=== PATIENT | male | born 1950 | race Caucasian/White ===

== ENCOUNTER 2018-03-05 08:06 | Emergency (ER) | payer MEDICARE, BC, SELFPAY ==
[2018-03-05] VITALS (16 sets, daily range): BP systolic 158–181; BP diastolic 82–104; PULSE 58–81; RESP 16–18; TEMP 36.4–37.9; O2SAT 96–99
[2018-03-05 08:16] LABS: Bilirubin Negative (Negative); Blood Moderate (Negative); Clarity Clear; Glucose Negative (Negative); Ketones 40 mg/dL (Negative); Leukocyte Esterase Negative (Negative); Nitrite Negative (Negative); Specific Gravity 1.025 (1.005-1.025); Urobilinogen 0.2 EU/dL (Up TO 0.2); pH 6.5 (5-8)
[2018-03-05 08:27] LABS: Bacteria Rare HPF (Negative); C & S Indicated? No; Casts Negative LPF (Negative); Crystals Negative HPF (Negative); Epithelial Cells Rare HPF (Negative); Mucus Moderate (Negative)
[2018-03-05 08:46] LABS: Abs Immature Grans 0.07 k/cumm (0.0-0.09); Absolute Lymphocyte Count 0.86 k/cumm (1.2-3.4); Absolute Monocyte Count 1.76 k/cumm (0.11-0.7); Basophils % 0.1; Eosinophils % 0.1; HCT 48.1 % (40.0-50.0); HGB 16.8 g/dL (13.5-17.5); Immature Grans % 0.4; Lymphocytes % 4.8; Mean Corp. HGB Concentration 34.9 g/dL (32.0-36.0); Mean Corpuscular Hemoglobin 28.8 pg (27.0-33.0); Mean Corpuscular Volume 82.4 fL (80-95); Mean Platelet Volume 10.8 fL (8.0-11.0); Monocytes % 9.9; Neutrophils % 84.7; Platelet Count 193 x1000/uL (130-400); RBC 5.84 m/cumm (4.50-6.00); RBC Distribution Width 13.3 % (11.8-14.1); White Blood Cell Count 17.82 k/cumm (4.4-10.8)
[2018-03-05] MEDS: Lactated Ringers 1,000 ML 1000 ML IV (08:47)
[2018-03-05] MEDS: Ondansetron 4 MG/2 ML VIAL IVP (08:49)
--- NOTE | 2018-03-05 08:50 | W.ED.GENAD ---
Discharge Plan Disposition Patient Disposition: HOME Discharge Details Chief Complaint: Abd Prob Clinical Impression: Inflammation of small intestine, Gallstones, Right kidney stone Primary Care Provider: Clement Queen ED Provider: Chester Mccabe Home Meds and New Rx's Prescriptions: New metronidazole [Flagyl] 250 mg tablet 250 mg PO TID Qty: 21 RF: 0 tamsulosin [Flomax] 0.4 mg capsule 0.4 mg PO DAILY Qty: 2 RF: 0 Continued lisinopril 20 mg Tablet 20 mg PO DAILY RF: 0 acetaminophen [Tylenol] 325 mg Capsule 325 mg PO Q6H PRNRF: 0 Discharge Instructions Instructions: Gallstones (ED), Kidney Stones (ED) Additional Instructions: Please drink plenty of fluids to stay hydrated. Please follow-up with general surgery. You need to have an endoscopy and colonoscopy as soon as possible. Please contact your primary care physician to arrange follow-up. Return to the ER for any worsening or new concerning symptoms. Referrals: Clement Queen [Primary Care Provider] - Yinka Fuentes DO [ [facility] STAFF PHYSICIAN] - Discharge Data Discharge Date/Time-TO BE ENTERED AT DEPARTURE: 03/05/18 13:45 Medical Decision Making 8:50 --67-year-old male smoker here with 3-4 days of right upper quadrant abdominal pain and right flank pain with associated nausea and vomiting. Bedside [id number] ultrasound reveals gallbladder with large stone that does not appear to be obstructing the neck of the gallbladder. Plan to check labs including LFTs and lipase to assess for pancreatitis. Plan to obtain abdominal ultrasound. Offered pain medication and patient declined. We will give antiemetics Zofran IV and IVF bolus. --labs reviewed and leukocytosis noted. LFTs are not significantly elevated. Normal lipase. Urinalysis has ketones and some RBCs. Spoke with radiology regarding right upper quadrant ultrasound: Gallstones are present, no pericholecystic fluid or gallbladder wall thickening. Findings are not consistent with acute cholecystitis. 12:35 -- Spoke to Dr. Guzman about results of the CT imagin mm renal stone right UVJ with hydronephrosis, gallstones present with no signs of acute cholecystitis patient has small intestinal bowel wall thickening that may be consistent with Giardia. He recommends follow-up outpatient endoscopy I called and spoke with Dr. Myers about patient's presentation and diagnostic workup and he will be happy to see the patient in follow-up and recommends starting metronidazole. Plan to start metronidazole. I will order outpatient stool studies. Patient reassessed multiple times and is remained stable. Nausea controlled. Tolerating p.o. fluids. Usual and customary discahrge instructions were provided. HPI General Mode of arrival: ambulatory. Date/Time Provider Initiated Documentation: 03/05/18 08:12. Limitations to Documentation: no limitations. Information obtained by: patient. HPI Narrative: 67-year-old male presents with 3-4 days of abdominal pain. Patient notes pain is moderate to severe. Waxes and wanes. Pain is localized to his right upper abdomen and right flank. Pain is described as sharp. No associated fever or urinary symptoms. He does have associated nausea and vomiting. He has anorexia and has not had a recent bowel movement. He is passing gas. No prior surgical history. Related Data Home Medications Medication Instructions Recorded Confirmed acetaminophen [Tylenol] 325 mg PO Q6H PRN 03/05/18 03/05/18 lisinopril 20 mg PO DAILY 03/05/18 03/05/18 metronidazole [Flagyl] 250 mg PO TID #21 tab 03/05/18 tamsulosin [Flomax] 0.4 mg PO DAILY #2 cap 03/05/18 Previous Rx's Medication Instructions Recorded metronidazole [Flagyl] 250 mg PO TID #21 tab 03/05/18 tamsulosin [Flomax] 0.4 mg PO DAILY #2 cap 03/05/18 Allergies Allergy/AdvReac Type Severity Reaction Status Date / Time No Known Allergies Allergy Unverified 03/05/18 08:09 General Stated Complaint: Abd Prob QUETA: 3 Review of Systems Review of Systems All systems reviewed & are unremarkable except as noted in HPI and below Cardiovascular Denies chest pain Gastrointestinal Reports abdominal pain and Reports nausea PFSH Medical History Hypertension (Chronic) Social History Smoking/Tobacco Use Status: Current-Occasional Exam Const General: cooperative and no acute distress HENMT Head: normocephalic and atraumatic Mouth: moist mucous membranes Eyes Conjunctivae: normal conjunctivae Sclera: normal sclerae EOM: EOM intact bilaterally Neck Neck: No JVD Resp Auscultation: clear to auscultation bilaterally, no rales, no rhonchi and no wheezes Cardio Jugular venous pressure: no JVD Rate: regular rate and not tachycardic Rhythm: regular rhythm GI Palpation: soft, not firm, no guarding, no masses, not rigid and tender in the RUQ; Ram's sign negative, with no rebound tenderness and Rovsing's sign negative Auscultation: normal bowel sounds Back/Spine/Pelvis Back: CVA tenderness (right) Skin General skin exam: no rashes or lesions noted Neuro General: alert, awake, oriented x3 and tone normal Extrem General: no edema Psych Appearance: grossly normal Mental Status: mental status grossly normal Speech and Movement: speech and movement normal Course Vital Signs Temperature 36.7 C 03/05/18 08:14 Pulse 75 03/05/18 08:14 Respiratory Rate 18 03/05/18 08:14 Blood Pressure 160/82 H 03/05/18 08:14 Pulse Oximetry 99 03/05/18 08:14 Temperature 36.7 C 03/05/18 08:14 Temperature Source Temporal Artery Scan 03/05/18 08:14 Pulse 75 03/05/18 08:14 Respiratory Rate 18 03/05/18 08:14 Respiratory Effort Non-Labored 03/05/18 08:17 Blood Pressure 160/82 H 03/05/18 08:14 Blood Pressure Position Supine 03/05/18 08:14 Pulse Oximetry 99 03/05/18 08:14 Oxygen Delivery Method Room Air 03/05/18 08:14 Oxygen Flow Rate 0 03/05/18 08:14 Pain Level 8 03/05/18 08:49 Lab/Test Results Lab/Test Results: Laboratory Tests Range/Units 03/05/18 08:11 Urine Color (Yellow) Yellow Urine Clarity Clear Urine pH (5-8) 6.5 Ur Specific [place] (1.005-1.025) 1.025 Urine Protein (Negative) mg/dL 100 H Urine Ketones (Negative) mg/dL 40 H Urine Blood (Negative) Moderate H Urine Nitrite (Negative) Negative Urine Bilirubin (Negative) Negative Urine Urobilinogen (Up TO 0.2) EU/dL 0.2 Ur Leukocyte Esterase (Negative) Negative Urine RBC (0-2) 5-10 H Urine WBC (0-5) HPF 3-5 Ur Epithelial Cells (Negative) HPF Rare Urine Crystals (Negative) HPF Negative Urine Bacteria (Negative) HPF Rare Urine Casts (Negative) LPF Negative Urine Mucus (Negative) Moderate Ur Culture Indicated? No Urine Glucose (Negative) mg/dL Negative
--- NOTE | 2018-03-05 08:54 | ED.GENADUL_ITS ---
Discharge Plan Disposition Patient Disposition: HOME Discharge Details Chief Complaint: Abd Prob Clinical Impression: Inflammation of small intestine, Gallstones, Right kidney stone Primary Care Provider: Clement Queen ED Provider: Chester Mccabe Home Meds and New Rx's Prescriptions: New metronidazole [Flagyl] 250 mg tablet 250 mg PO TID Qty: 21 RF: 0 tamsulosin [Flomax] 0.4 mg capsule 0.4 mg PO DAILY Qty: 2 RF: 0 Continued lisinopril 20 mg Tablet 20 mg PO DAILY RF: 0 acetaminophen [Tylenol] 325 mg Capsule 325 mg PO Q6H PRNRF: 0 Discharge Instructions Instructions: Gallstones (ED), Kidney Stones (ED) Additional Instructions: Please drink plenty of fluids to stay hydrated. Please follow-up with general surgery. You need to have an endoscopy and colonoscopy as soon as possible. Please contact your primary care physician to arrange follow-up. Return to the ER for any worsening or new concerning symptoms. Referrals: Clement Queen [Primary Care Provider] - Yinka Fuentes DO [ [facility] STAFF PHYSICIAN] - Discharge Data Discharge Date/Time-TO BE ENTERED AT DEPARTURE: 03/05/18 13:45 Medical Decision Making 8:50 --67-year-old male smoker here with 3-4 days of right upper quadrant abdominal pain and right flank pain with associated nausea and vomiting. Bedside [id number] ultrasound reveals gallbladder with large stone that does not appear to be obstructing the neck of the gallbladder. Plan to check labs including LFTs and lipase to assess for pancreatitis. Plan to obtain abdominal ultrasound. Offered pain medication and patient declined. We will give antiemetics Zofran IV and IVF bolus. --labs reviewed and leukocytosis noted. LFTs are not significantly elevated. Normal lipase. Urinalysis has ketones and some RBCs. Spoke with radiology regarding right upper quadrant ultrasound: Gallstones are present, no pericholecystic fluid or gallbladder wall thickening. Findings are not consistent with acute cholecystitis. 12:35 -- Spoke to Dr. Guzman about results of the CT imagin mm renal stone right UVJ with hydronephrosis, gallstones present with no signs of acute cholecystitis patient has small intestinal bowel wall thickening that may be consistent with Giardia. He recommends follow-up outpatient endoscopy I called and spoke with Dr. Myers about patient's presentation and diagnostic workup and he will be happy to see the patient in follow-up and recommends starting metronidazole. Plan to start metronidazole. I will order outpatient stool studies. Patient reassessed multiple times and is remained stable. Nausea controlled. Tolerating p.o. fluids. Usual and customary discahrge instructions were provided. HPI General Mode of arrival: ambulatory . Date/Time Provider Initiated Documentation: 03/05/18 08:12 . Limitations to Documentation: no limitations . Information obtained by: patient . HPI Narrative: 67-year-old male presents with 3-4 days of abdominal pain. Patient notes pain is moderate to severe. Waxes and wanes. Pain is localized to his right upper abdomen and right flank. Pain is described as sharp. No associated fever or urinary symptoms. He does have associated nausea and vomiting. He has anorexia and has not had a recent bowel movement. He is passing gas. No prior surgical history. Related Data Home Medications Medication Instructions Recorded Confirmed acetaminophen [Tylenol] 325 mg PO Q6H PRN 03/05/18 03/05/18 lisinopril 20 mg PO DAILY 03/05/18 03/05/18 metronidazole [Flagyl] 250 mg PO TID #21 tab 03/05/18 tamsulosin [Flomax] 0.4 mg PO DAILY #2 cap 03/05/18 Previous Rx's Medication Instructions Recorded metronidazole [Flagyl] 250 mg PO TID #21 tab 03/05/18 tamsulosin [Flomax] 0.4 mg PO DAILY #2 cap 03/05/18 Allergies Allergy/AdvReac Type Severity Reaction Status Date / Time No Known Allergies Allergy Unverified 03/05/18 08:09 General Stated Complaint: Abd Prob QUETA: 3 Review of Systems Review of Systems All systems reviewed & are unremarkable except as noted in HPI and below Cardiovascular Denies chest pain Gastrointestinal Reports abdominal pain and Reports nausea PFSH Medical History Hypertension (Chronic) Social History Smoking/Tobacco Use Status: Current-Occasional Exam Const General: cooperative and no acute distress HENMT Head: normocephalic and atraumatic Mouth: moist mucous membranes Eyes Conjunctivae: normal conjunctivae Sclera: normal sclerae EOM: EOM intact bilaterally Neck Neck: No JVD Resp Auscultation: clear to auscultation bilaterally, no rales, no rhonchi and no wheezes Cardio Jugular venous pressure: no JVD Rate: regular rate and not tachycardic Rhythm: regular rhythm GI Palpation: soft, not firm, no guarding, no masses, not rigid and tender in the RUQ; Ram's sign negative, with no rebound tenderness and Rovsing's sign negative Auscultation: normal bowel sounds Back/Spine/Pelvis Back: CVA tenderness (right) Skin General skin exam: no rashes or lesions noted Neuro General: alert, awake, oriented x3 and tone normal Extrem General: no edema Psych Appearance: grossly normal Mental Status: mental status grossly normal Speech and Movement: speech and movement normal Course Vital Signs Temperature 36.7 C 03/05/18 08:14 Pulse 75 03/05/18 08:14 Respiratory Rate 18 03/05/18 08:14 Blood Pressure 160/82 H 03/05/18 08:14 Pulse Oximetry 99 03/05/18 08:14 Temperature 36.7 C 03/05/18 08:14 Temperature Source Temporal Artery Scan 03/05/18 08:14 Pulse 75 03/05/18 08:14 Respiratory Rate 18 03/05/18 08:14 Respiratory Effort Non-Labored 03/05/18 08:17 Blood Pressure 160/82 H 03/05/18 08:14 Blood Pressure Position Supine 03/05/18 08:14 Pulse Oximetry 99 03/05/18 08:14 Oxygen Delivery Method Room Air 03/05/18 08:14 Oxygen Flow Rate 0 03/05/18 08:14 Pain Level 8 03/05/18 08:49 Lab/Test Results Lab/Test Results: Laboratory Tests Range/Units 03/05/18 08:11 Urine Color (Yellow) Yellow Urine Clarity Clear Urine pH (5-8) 6.5 Ur Specific [place] (1.005-1.025) 1.025 Urine Protein (Negative) mg/dL 100 H Urine Ketones (Negative) mg/dL 40 H Urine Blood (Negative) Moderate H Urine Nitrite (Negative) Negative Urine Bilirubin (Negative) Negative Urine Urobilinogen (Up TO 0.2) EU/dL 0.2 Ur Leukocyte Esterase (Negative) Negative Urine RBC (0-2) 5-10 H Urine WBC (0-5) HPF 3-5 Ur Epithelial Cells (Negative) HPF Rare Urine Crystals (Negative) HPF Negative Urine Bacteria (Negative) HPF Rare Urine Casts (Negative) LPF Negative Urine Mucus (Negative) Moderate Ur Culture Indicated? No Urine Glucose (Negative) mg/dL Negative
[2018-03-05 08:59] LABS: ALT 24 U/L (12-78); AST 14 U/L (15-37); Albumin 3.8 g/dL (3.4-5.0); Alkaline Phosphatase 75 U/L (46-116); Anion Gap 7.1 mmol/L (3-11); BUN 16 mg/dL (7-18); Bilirubin, Total 1.2 mg/dL (0.2-1.0); CO2 29.9 mmol/L (21.0-32.0); CREATININE 1.64 mg/dL (0.70-1.30); Calcium 8.8 mg/dL (8.5-10.1); Chloride 101 mmol/L (98-107); Estimated GFR 42.37 (mL/min/1.73m2); Glucose 133 mg/dL (70-100); Lipase 76 U/L (73-393); Potassium 3.9 mmol/L (3.5-5.1); Sodium 138 mmol/L (136-145); Total Protein 7.2 g/dL (6.4-8.2)
[2018-03-05 09:01] LABS: Absolute Basophil Count 0.02 k/cumm (0.0-0.2); Absolute Eosinophil Count 0.02 k/cumm (0.0-0.7); Absolute Neutrophil Count 15.09 k/cumm (1.2-6.7)
[2018-03-05 09:03] LABS: Diff Comment Diff Reviewed; RBC Morphology Normal
[2018-03-05] MEDS: Normal Saline Flush 10 ML SYR IVP (09:37)
--- NOTE | 2018-03-05 09:53 | DI.US_ITS ---
SYMPTOMS/DIAGNOSIS: RIGHT UPPER QUADRANT AND RIGHT FLANK PAIN, NAUSEA ABDOMINAL ULTRASOUND: The visualized liver parenchyma is normal in appearance. Note is made of cholelithiasis. No gallbladder wall thickening, pericholecystic fluid collection or biliary dilatation seen. The pancreas is not well seen. Spleen is grossly unremarkable. Aorta and IVC are not well seen but grossly of normal diameter. There is a question of mild right hydronephrosis. The left kidney is unremarkable in appearance and there is no evidence of renal calcification on either side. CONCLUSION: 1. Cholelithiasis. 2. Question mild right hydronephrosis. 3. Incidental right lobe hepatic cyst, 22 mm in diameter.
--- NOTE | 2018-03-05 10:25 | DI.CT_ITS ---
SYMPTOMS/DIAGNOSIS: RIGHT UPPER QUADRANT PAIN, GALLSTONE, KIDNEY DILATATION, HEMATURIA ABDOMINAL AND PELVIC CT: CT examination of the abdomen and pelvis was performed with oral contrast only due to impaired renal function. Images obtained through the lung bases are unremarkable. There is a low attenuation right hepatic lobe lesion consistent with cyst identified by ultrasound. Note is made of cholelithiasis. No biliary dilatation is seen. No pericholecystic fluid collection or fat edema. The pancreas is unremarkable in appearance. Spleen appears intact. There is apparent wall thickening and fold thickening of the duodenum and proximal jejunum; the possibility of enteritis is raised, consider Giardia infection. Adrenals appear normal bilaterally. The left kidney and ureter are normal. There is mild right hydronephrosis and hydroureter to the level of the ureterovesical junction where there is an apparent intramural 2 mm in diameter obstructing stone. No additional right-sided urinary tract calcifications seen. No significant abdominal wall hernia seen. No significant abdominal or pelvic adenopathy. Appendix appears normal. Chronic diverticulosis noted without evidence of acute diverticulitis. CONCLUSION: 1. Obstructing 2 mm in diameter UVJ stone on the right. 2. Cholelithiasis. 3. Fold thickening of duodenum and proximal jejunum, possible enteritis; consider giardiasis.
[2018-03-05] MEDS: Normal Saline 1,000 ML 1000 ML IV (12:32)
[2018-03-05] MEDS: metroNIDAZOLE 500 MG TAB PO (12:34)
[2018-03-05] MEDS: Tamsulosin 0.4 MG CAPCR PO (13:24)
== END 2018-03-05 13:45 | disposition home or self-care (01) ==
PROVIDERS: Emergency Provider Student in an Organized Health Care Education/Training Program; PCP Family Medicine
DX: N13.2 Hydronephrosis with renal and ureteral calculous obstruction (principal); K80.20 Calculus of gallbladder without cholecystitis without obstruction; K52.9 Noninfective gastroenteritis and colitis, unspecified; D72.829 Elevated white blood cell count, unspecified; I10 Essential (primary) hypertension
CPT/HCPCS: 80053; 83690; 96361; 96374; 99284; 74176; 76700; 81003; 81015; 85025; J2405

== ENCOUNTER 2019-03-18 14:22 | Outpatient (CLI) | payer MEDICARE, BC, SELFPAY ==
--- NOTE | 2019-03-18 13:38 | DI.RAD_ITS ---
EXAM: XR HIP RT COMPLETE AP PELVIS INDICATION: right hip pain and restricted motion. TECHNIQUE: 2D digital imaging was performed. FINDINGS: There is severe narrowing of the superior right hip joint space. There is some collapse of the super ior femoral head and adjacent bony fragmentation. There are prominent osteophytes. The left hip is u nremarkable. IMPRESSION: Severe degenerative changes of the right hip with collapse of the superior portion of the femoral hea d.
--- NOTE | 2019-03-18 13:40 | DI.RAD_ITS ---
EXAM: XR KNEE RT 3V AP,LAT,JUANY INDICATION: eval r knee pain. COMPARISON: No exams were available for comparison TECHNIQUE: 2D digital imaging was performed. FINDINGS: The joint spaces are well maintained. There is no significant periarticular spurring. No joint effu miguel is seen. There is a small exostosis at the medial distal femoral metaphysis. IMPRESSION: No acute abnormality.
== END 2019-03-18 14:42 ==
PROVIDERS: PCP Family Medicine; Referring Provider Family Medicine; Visit Provider Student in an Organized Health Care Education/Training Program
DX: M25.561 Pain in right knee (principal); M25.551 Pain in right hip; M16.11 Unilateral primary osteoarthritis, right hip; I10 Essential (primary) hypertension
CPT/HCPCS: 73562; 99203; 99214; 73502

== ENCOUNTER 2019-05-23 09:30 | Outpatient (CLI) | payer MEDICARE, BC, SELFPAY ==
[2019-05-23 11:14] LABS: HCT 48.5 % (40.0-50.0); HGB 16.9 g/dL (13.5-17.5); Mean Corp. HGB Concentration 34.8 g/dL (32.0-36.0); Mean Corpuscular Hemoglobin 28.3 pg (27.0-33.0); Mean Corpuscular Volume 81.1 fL (80-95); Mean Platelet Volume 10.6 fL (8.0-11.0); Platelet Count 294 x1000/uL (130-400); RBC 5.98 m/cumm (4.50-6.00); RBC Distribution Width 13.4 % (11.8-14.1); White Blood Cell Count 15.24 k/cumm (4.4-10.8)
[2019-05-23 12:06] LABS: Anion Gap 8.8 mmol/L (3-11); BUN 19 mg/dL (7-18); CO2 29.2 mmol/L (21.0-32.0); CREATININE 1.25 mg/dL (0.70-1.30); Chloride 105 mmol/L (98-107); Estimated GFR 57.79 (mL/min/1.73m2); Glucose 105 mg/dL (74-106); Potassium 4.2 mmol/L (3.5-5.1); Sodium 143 mmol/L (136-145)
== END 2019-05-23 09:50 ==
PROVIDERS: PCP Family Medicine; Visit Provider Student in an Organized Health Care Education/Training Program
DX: M25.551 Pain in right hip (principal); M16.11 Unilateral primary osteoarthritis, right hip; Z01.818 Encounter for other preprocedural examination; Z01.812 Encounter for preprocedural laboratory examination
CPT/HCPCS: 36415; 80048; 85027; 86850; 86900; 86901

== ENCOUNTER → 2019-05-24 08:13 | Outpatient (BNVA) | payer MEDICARE, BC, SELFPAY | PROVIDERS: PCP Family Medicine; Referring Provider Family Medicine; Visit Provider Student in an Organized Health Care Education/Training Program | DX: Z01.818 Encounter for other preprocedural examination (principal); M16.11 Unilateral primary osteoarthritis, right hip; I10 Essential (primary) hypertension ==

== ENCOUNTER 2019-07-16 09:05 | Outpatient (CLI) | payer MEDICARE, BC, SELFPAY ==
[2019-07-17 08:02] LABS: COVID-19 RT-PCR UVMMC Result Negative (Negative)
== END 2019-07-16 09:25 ==
PROVIDERS: PCP Family Medicine; Visit Provider Student in an Organized Health Care Education/Training Program
DX: M25.551 Pain in right hip (principal); M16.11 Unilateral primary osteoarthritis, right hip; Z11.59 Encounter for screening for other viral diseases; Z01.818 Encounter for other preprocedural examination; Z01.812 Encounter for preprocedural laboratory examination
CPT/HCPCS: 36415; 86850; 86900; 86901; U0003

== ENCOUNTER 2019-07-19 07:51 | Observation (INO) | payer MEDICARE, BC, SELFPAY ==
[2019-07-19] VITALS (12 sets, daily range): BP systolic 72–161; BP diastolic 42–85; PULSE 70–88; RESP 13–20; TEMP 35.5–36.7; O2SAT 92–98
[2019-07-19] MEDS: Lactated Ringers 1,000 ML 80 ML IV ×2 (08:29→14:56)
[2019-07-19] MEDS: Acetaminophen 500 MG TAB 1000 MG PO ×2 (08:33→16:00)
[2019-07-19] MEDS: Celecoxib 200 MG CAP 400 MG PO (08:33)
--- NOTE | 2019-07-19 09:26 | W.PM.HP.N ---
Date of service: 07/19/19 Time of Service: 09:26 Assessment and Plan Assessment and plan (1) Osteoarthritis of right hip: Status: Acute Assessment and plan: Sadiq is a 69-year-old who has right hip arthritis. He is failed conservative options. At this point, he elects to proceed with a right hip replacement. I went over in detail the possible complications of hip replacement. These include but are not limited to bleeding, infection, pain, stiffness, weakness, damage to nerves (especially the lateral femoral cutaneous nerve), damage to vessels, damage to muscle and tendon, fracture, leg length inequality, wound healing complications, instability, dislocation, and blood clot. Questions were answered. I again expressed that this is a surgery to improve functional quality of life. After a review of the presented information and risks, [name] desired to proceed. Qualifiers: Osteoarthritis type: primary Qualified Code(s): M16.11 - Unilateral primary osteoarthritis, right hip History of Present Illness History of Present Illness Chief Complaint: Right hip arthritis Narrative: Sadiq is a 69-year-old active male who has had progressive right hip pain. He has seen me previously for right hip arthritis with collapse and notable osteophytes. He has failed conservative options and presents today for hip replacement. A previous history of physical was performed in May for surgery in late May which was canceled due to the coronavirus pandemic. Please reference that H&P for all complete details and this serves as a supplemental update. He reports no new change in his symptoms except for pain in the right hip. He denies new numbness or tingling. No new trauma. No chest pain or shortness of breath. No fevers no chills. Review of Systems All systems reviewed & are unremarkable except as noted in HPI and below PFSH Medical History Current smoker on some days (Acute) 3 cigarettes per day Hx of gallstones (Acute) 03/05/18 Hypertension (Chronic) Kidney stone (Chronic) Surgical History H/O vasectomy (Acute) Hx of colonoscopy (Chronic) Hx of tonsillectomy (Chronic) Social History Smoking/Tobacco Use Status: Current every day Drug use: Never Current gender identity: male Do you feel safe in your relationship?: Yes Meds Home Medications and Allergies Home Medications Medication Instructions Recorded Confirmed Type acetaminophen [Tylenol] 325 mg PO Q6H PRN 03/05/18 07/19/19 History lisinopril 20 mg PO DAILY 03/05/18 07/19/19 History naproxen sodium [Aleve] 220 mg PO BID 05/23/19 07/19/19 History Allergies Allergy/AdvReac Type Severity Reaction Status Date / Time No Known Allergies Allergy Unverified 07/19/19 07:59 Exam Const General: cooperative, healthy appearing, comfortable and no acute distress Nutritional Appearance: average body habitus Orientation: alert, awake and oriented x3 Resp Effort & Inspection: normal respiratory effort Auscultation: clear to auscultation bilaterally Cardio Rate: regular rate Rhythm: regular rhythm Extrem Other: No overlying skin changes to the right hip. No signs of infection. Generalized swelling about the right hip. Limited internal rotation and external rotation, with pain. The right leg is approximate 5 mm shorter than the left side. Sensation intact light touch over the lateral from cutaneous nerve, femoral nerve, and sciatic nerve distributions. Results Last Vital Signs Temp 36.7 C 07/19/19 08:10 Pulse 77 07/19/19 08:10 Resp 16 07/19/19 08:10 BP 161/85 H 07/19/19 08:10 Pulse Ox 97 07/19/19 08:10 COVID-19 Screening Traveled to [place] from one of the affected countries or regions?: NO
[2019-07-19] MEDS: ceFAZolin 2 GM/50 ML BAG IVPB (12:14)
[2019-07-19] MEDS: Ketorolac 30 MG/ML VIAL (13:22)
[2019-07-19] MEDS: Bupivacaine 0.25% Pres-Free 30 ML VIAL (13:24)
--- NOTE | 2019-07-19 13:42 | DI.RAD_ITS ---
EXAM: XR HIP RT IN OR CLINICAL HISTORY: end stage OA right hip. TECHNIQUE: 2D and realtime digital imaging was performed. COMPARISON: CR XR HIP RT COMPLETE AP PELVIS from 03/18/2019 FINDINGS: Fluoroscopy was provided in the OR. Hard copy images show placement of a right hip prosthesis. The components appear well aligned. RADIATION DOSE DELIVERED: Fluoroscopy time 49.1 seconds, 6.01 mGy
--- NOTE | 2019-07-19 15:07 | ROE_ITS ---
Date of service: 07/19/19 Time of Service: 14:22 Operative Note Operative Note DATE OF PROCEDURE: 07/19/19 PRE-OP DIAGNOSIS: Right Hip Osteoarthritis POST-OP DIAGNOSIS: same PROCEDURE: Right Anterior Total Hip Arthroplasty SURGEON: Jerald Oneal VIDEO TAPE DUPLICATOR: Evelin Bella ANESTHESIA: spinal ESTIMATED BLOOD LOSS: 400 PATHOLOGY: none sent TOURNIQUET TIME: 0 COMPLICATIONS: None Patient was transported to: PACU Patient's condition: stable Implants: 1. Depuy Meade Acetabular Component, 52 mm 2. Depuy Acetabular Liner, 52 x 32 mm 3. Depuy Corail high offset femoral Stem, Size 10 4. Depuy Altrx Ceramic Femoral Head, Size 32+5 mm Indications: I have seen Sadiq in clinic for symptoms of hip arthritis, confirmed with radiographic findings. He has exhausted nonoperative methods and was having significant limitations in daily function and desired better function and less pain. I discussed the technical details of a hip replacement. I explained the risks of the procedure to include, but not limited to, bleeding, infection, pain, stiffness, fracture, damage to nerves and vessels, damage to muscles and tendons, loosening, instability, leg length inequality, need for repeat procedure, blood clot and cardiopulmonary demise. Despite these risks, Sadiq elected to proceed. Findings: There was significant signs of arthritis throughout the hip. There were large osteophytes throughout the acetabulum as well as the femoral head neck. There is also a large floor osteophyte. Procedure Description: Sadiq was greeted in the preoperative holding area where the correct side was identified and marked. The consent was reviewed with the patient and signed. The history and physical was updated. All questions were answered. He was taken back to the operating room. A spinal anesthestic was then administered. The patient was placed into the supine position on the operating room table. The patient was then positioned onto the ARCH table. Both feet were wrapped with Webrill cotton wrap along with Coban. The feet were placed in specialized boots for the ARCH table, well seated within the boot and secured. SCDs were applied. The patient was then slid down onto a peroneal post and the nonoperative leg was secured in a leg berg attached to the table. The operative side was placed into the ARCH table attachment and bed height and positioning was secured. A preoperative AP pelvis was obtained to serve as a reference for determining leg lengths. Prophylactic antibiotics in the form of cefazolin were administered. 1g of Tranxemic Acid was given intravenously within 30 minutes of incision. The right leg was then prepped with Chloraprep and draped in a standard fashion. A second prep with Chloraprep was performed prior to placement of a shower-curtain type drape with Iodine impregnated skin protection. A timeout to confirm correct identity, side and site, procedure, allergies, anesthesia, and medical concerns was performed. An obliquely oriented incision was made starting lateral to the ASIS and running distal over the Tensor Fascia Lou (TFL) muscle belly toward the fibular head, approximately 10cm. The skin and soft tissue was dissected sharply, through Kev?s fascia, and to the fascia of the TFL. With the fascia and superior border of the IT band identified, the fascia was incised with a new knife just above any perforators from the IT band. The TFL muscle belly was bluntly dissected away from the fascia and moved laterally. The fat between TFL and rectus was identified to ensure the dissection was not within the TFL. Blunt dissection created space between abductors and the capsule and retractor was placed over the lateral femoral neck. The fibers of the rectus femoris tendon were identified and these were freed from the anterior capsule. A second cobra retractor was placed around the medial femoral neck. The TFL was further retracted laterally to show the deep fascia. Careful dissection through this layer identified three main crossing vessels of the lateral femoral circumflex. These were cauterized in multiple locations and then cut without any noticeable bleeding. The TFL was further released bluntly from the deep fascia to expose anterior hip capsule and fat the Jeremy orthopaedic retractor was then placed beneath the TFL and against sartorius and medial soft tissues to protect and retract the soft tissues. A T-capsulotomy was then performed starting at the superior lateral acetabulum and moving distally to the intertrochanteric ridge. These capsular flaps were tagged with a No. 1 Ethibond and elevated from within. The capsular flaps were released to the shoulder of the lateral neck and to the lesser trochanter to give excellent visualization of the proximal femur. A neck osteotomy was performed using an oscillating saw based on preoperative templates. This cut started in the shoulder and of the lateral neck and exited medially. The saw was at all times directed medially to avoid injury to the greater trochanter. 6cm of traction was applied to the leg and the osteotomy opened. The femoral head was removed with a corkscrew, making sure to protect the TFL on its exit. This was measured on the back table to determing the starting reamer size. Portions of the rectus obscuring visualization were minimally elevated off the superior acetabulum. An anterior retractor was placed over the anterior wall between capsule and labrum and attached to the Gripper retraction system. A posterior retractor was placed similarly. This provided excellent visualization. The contents of the cotyloid fossa were removed with electrocautery and the labrum was removed with a knife. There was a notable floor osteophyte. There was significant chondromalacia of the superior acetabulum. Acetabular reaming began with a 49 mm reamer. This first reaming was directed anterior to posterior and medial to get down to the true floor. This was inspected and reamed until the true floor was reached. I then reamed sequentially up to a 52 mm reamer where good fit was obtained. The larger reamers were oriented based on anatomical reference of the anterior and lateral barnett to ensure proper abduction and anteversion. Positioning and size was confirmed with the fluoroscopy. A 52 mm Depuy Meade acetabular component was selected. The deep tissues were irrigated. The acetabular component was then impacted in a position of about 40-45 degrees of abduction and 15-20 degrees of anteversion, using the patient?s anatomy as the ultimate landmark. Fluoroscopy was used to confirm this. There was excellent strategic partnership specialist of the acetabular component and the inserting handle was removed. The acetabular liner, Depuy 52 x 32 mm polyethylene liner, was inserted and lined up with the tines of the acetabular component. There was no soft tissue interposition. The liner was then impacted into position and confirmed to be well-seated. A portion of the walt-articular cocktail was then injected around the acetabulum into the capsule and periosteum. This cocktail consisted of 50cc of 0.25% Bupivicaine and 20cc of Exparel, expanded to a total of 120cc. Traction was released from the femur. The leg was rotated to 120 degrees. Any remaining medial capsule was released until the lesser trochanter was easily palpable. A Boateng retractor was placed medially. The lateral capsule was further released into the shoulder to allow access to the greater trochanter. A Boateng retractor was placed over the greater trochanter which allowed the trochanter to flip in front of the capsule for excellent exposure. The leg was brought down into maximal extension and 20 degrees of adduction while ensuring there was no impingement on the acetabulum. Any remnant capsule within the tro chanter was released. Piriformis and obturator externis were identified and protected. There was excellent access to the proximal femur. The lateral neck remnant was removed with a rongeur. A blunt canal probe was used to identify the canal and trajectory for later broaching. A box osteotome initiated the broach course. A small curved rasp and a curved curette were used to work laterally. Broaching then began with a size 8 Corail broach. This was inserted manually around the trochanter and into the canal before mallet blows. The broach was seated to a few millimeters below the cut level based on the neck cut and the preoperative template. Sequential broaching was continued with the [employer] pneumatic broaching device until a tight fit was obtained with good rotational control of the femur. A trial standard neck was inserted along with a +5 trial head. The leg was brought out of extension and adduction and then reduced with traction and internal rotation. The leg was stable anteriorly in a position of 30 degrees of extension and 90 degrees of external rotation. Fluoroscopy was used to ensure there was no fracture and the stem was seated well. Leg lengths were checked with an AP pelvis and pelvic reference points. Joint point intraoperative navigation system was also used to assess leg length and offset. Based on this measurement as well as the use of an alignment loc, we seem to lack a few millimeters of length and at least 6 mm of offset. Therefore, a high offset stem was chosen with a +5 head. Once content with the desired offset and leg lengths, the leg was brought back into extension, external rotation and adduction. The periosteum and surrounding tissue was injected with remaining portion of the walt-articular cocktail. The proximal femur was irrigated as well as the deep tissues. The Depuy Corail high offset stem, size 10, was then manually inserted into the proximal femur making sure to control rotation. It was then malleted into position with light blows, giving breaks to allow bone expansion and decrease risk of fracture. The selected Depuy Altrx Ceramic Head, size 32+5 mm, was then placed onto the clean and dry trunion and secured with impaction onto the tapered fit. The leg was brought back out of extension and adduction and reduced with traction and internal rotation. Stability was confirmed with no shuck at 90 degrees of external rotation and 30 degrees of extension. No impingement through range of motion arc. Final x-ray images were obtained with fluoroscopy to confirm adequate positioning and no intraoperative fracture. The deep tissues were thoroughly irrigated with Irrisept chlorhexadine solution. The second dose of TXA 1g was administered intravenously. The capsule was then reapproximated with the previously placed Ethibond sutures. The TFL fascia was finally closed with a No. 2 Stratafix, barbed suture. Deep tissues were then reapproximated with 0 Vicryl and a running 2-0 Vicryl. The skin was closed with a running 4-0 Monocryl in a subcuticular fashion. This was reinforced with skin glue. A Mepilex silver dressing was applied. At the end of the case, all counts were correct. Sadiq was transferred to the hospital bed without difficulty and suffering no apparent complication. He has a good prognosis. Physical therapy will start today and without restrictions, weight-bearing as tolerated. Aspirin 81mg BID will be used for DVT prophylaxis.
--- NOTE | 2019-07-19 15:42 | W.PM.DS.N ---
Date of service: 07/19/19 Time of Service: 15:42 DS: Diagnosis Discharge Diagnosis (1) Osteoarthritis of right hip: Status: Acute Discharge Plan Disposition Patient Disposition: HOME Condition: Good Discharge Details Reason For Visit: (R) HIP DJD Admit Date/Time: 07/19/19 07:51 Admit Provider: Jerald Oneal Attending Provider: Jerald Oneal Primary Care Provider: [facility] Course Hospital Course: Patient was admitted to the medical/surgical floor following the procedure. It was tolerated well without any notable medical, surgical, or anesthetic complications. Mobilization began postoperatively. He was voiding spontaneously. Vitals were stable. Physical therapy worked with the patient and was cleared for discharge home. No acute medical issues. Home Meds and New Rx's Prescriptions: New celecoxib 200 mg capsule 200 mg PO BID PRN (Reason: pain) Qty: 60 RF: 1 aspirin 81 mg tablet,delayed release (DR/EC) 81 mg PO BID Qty: 60 RF: 0 acetaminophen 500 mg tablet 1,000 mg PO Q8H PRN (Reason: pain) Qty: 90 RF: 3 pantoprazole 40 mg tablet,delayed release (DR/EC) 40 mg PO DAILY Qty: 30 RF: 0 oxycodone 5 mg tablet 5 mg PO Q4H Qty: 12 RF: 0 Continued lisinopril 20 mg Tablet 20 mg PO DAILY RF: 0 Discontinued naproxen sodium [Aleve] 220 mg Capsule 220 mg PO BID RF: 0 acetaminophen [Tylenol] 325 mg Capsule 325 mg PO Q6H PRNRF: 0 Discharge Instructions Additional Instructions: Dr. Oneal?s Total Hip Discharge Instructions Activity: The most important activity is to walk. You should try to take short walks a few times a day. You have no restrictions on movement or positioning, but do not try to force what you do. You will find some stiffness and weakness with hip flexion (lifting your knee). Do not try to strengthen this too early, continue to practice walking and stairs and this will come. - Outpatient physical therapy can be helpful to help return you to a normal gait and improve your flexibility and strength. This can start around 2 weeks. For some patients, it?s not necessary. Usually this is determined at the time of discharge or at the first post-operative visit. - You should wear the HUONG hose on both legs for 2 weeks. Dressing: Keep the surgical dressing in place for at least one week. After the first week it may be removed and replace with light gauze and tape or nothing. It may get wet after 3 days but avoid soaking the dressing. If it gets wet, just lightly pat dry. It is important to always keep some gauze between skin folds, especially when you are sitting. Spend some time with the wound exposed when you are lying flat as the incision does wrinkle onto itself. Medications: - You should take Tylenol and an anti-inflammatory Celebrex as your primary pain control medications - You have been prescribed a stronger pain medication Oxycodone for breakthrough pain, take as needed as prescribed. - You have also been prescribed a stomach acid reduction agent Pantoprozole to help reduce stomach acid and reflux. - You will be taking Aspirin 81mg twice a day for DVT prevention unless instructed otherwise. - If you have constipation you should take Colace or Miralax (both [id number]). It takes most people 3-4 days to have a bowel movement. Follow-up: 2 weeks Referrals: Jerald Oneal MD [ [facility] STAFF PHYSICIAN] - Activity:: Activity as Tolerated Equipment/Supplies:: Walker Diet:: As Tolerated Discharge Orders Discharge Orders: Discharge Order (Routine); Ordered 07/19/19 Ordered By: Jerald Oneal DS: Summary Status at Discharge Functional status at discharge: uses cane/walker Overall status at discharge: patient is progressing back to baseline Mental Status: mental status grossly normal Speech and Movement: speech and movement normal Mood: congruent mood Affect: normal affect Exam Psych Mental Status: mental status grossly normal Speech and Movement: speech and movement normal Mood: congruent mood Affect: normal affect DS: Data Vitals/I&O Vitals and I&O: Vital Signs Temperature 35.6 C L 07/19/19 15:31 Temperature Source Tympanic 07/19/19 15:31 Pulse 73 07/19/19 15:31 Pulse Rhythm Regular 07/19/19 08:10 Respiratory Rate 18 07/19/19 15:31 Respiratory Effort 07/19/19 08:10 Respiratory Depth Normal 07/19/19 08:10 Respiratory Pattern Normal 07/19/19 08:10 Blood Pressure 116/71 07/19/19 15:31 Pulse Oximetry 94 L 07/19/19 15:31 Respiratory End-tidal CO2 36 07/19/19 14:56 Oxygen Delivery Method Room Air 07/19/19 15:31 Oxygen Flow Rate 0 07/19/19 15:31 Pain Level 0 07/19/19 15:31 Intake & Output 07/18/19 07/19/19 07/19/19 23:59 11:59 23:59 Intake Total 1170 / 1170 Output Total 400 / 400 Balance 770 / 770 Weight 74.3 kg Intake: IV 1170 / 1170 Output: Estimated Blood Loss 400 / 400 Other: Emesis Description None PFSH Medical History Current smoker on some days (Acute) 3 cigarettes per day Hx of gallstones (Acute) 03/05/18 Hypertension (Chronic) Kidney stone (Chronic) Surgical History H/O vasectomy (Acute) Hx of colonoscopy (Chronic) Hx of tonsillectomy (Chronic) Social History Smoking/Tobacco Use Status: Current every day Drug use: Never Current gender identity: male Do you feel safe in your relationship?: Yes
[2019-07-19] MEDS: ceFAZolin 1 GM/50 ML BAG IVPB (16:00)
--- NOTE | 2019-07-19 16:25 | PT.INIE ---
Date of service: 07/19/19 Time of Service: 14:25 PT Notes Visit Reasons: (R) HIP DJD Physical Therapy Inpatient Initial Evaluation Date: 07/19/2019 Referring Doctor: Jerald Oneal MD PT Orders: PT CONSULT: Status post Ortho surgery. Status post right DEBRA. Hopeful same-day discharge. Precautions: Fall. Standard. WBAT on right LE. Patient Profile/Admitting Diagnosis: Patient is a 69-year-old male with degenerative joint disease of the right hip and is status post right anterior total hip arthroplasty on postoperative day 0. PMHX: Medical History Current smoker on some days (Acute) 3 cigarettes per day Hx of gallstones (Acute) 03/05/18 Hypertension (Chronic) Kidney stone (Chronic) Surgical History H/O vasectomy (Acute) Hx of colonoscopy (Chronic) Hx of tonsillectomy (Chronic) Social History/Home Situation: Patient lives in a private home with his with 2 steps to enter. They have everything he can access on the main floor of the house. Independent with all ADLs prior to surgery. 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 He has a barn that he is 60 feet away from his house that he walks to on a daily basis. He loves ice fishing. Equipment Owned/DME: None Subjective: Sadiq describes both his legs and feet as feeling funky and tingly. He states that it feels okay from his buttocks down to his knees. He denies any falls in the past 12 months. He hopes to go home later this afternoon or tonight and hopes to drive back to work next Monday as soon as he can walk and void urine. Objective: General Observation: Bilateral TEDS on. IV in right UE. Mepilex Ag over surgical incision. Mental Status: Alert and oriented x4 Pain: None reported ROM: Right Upper Extremity: Shoulder Flexion WFL. Shoulder abduction WFL. Elbow flexion WFL. Wrist flexion WFL. Opening and closing of hand WFL. Left Upper Extremity: Shoulder Flexion WFL. Shoulder abduction WFL. Elbow flexion WFL. Wrist flexion WFL. Opening and closing of hand WFL. Right Lower Extremity: Hip flexion WFL. Hip abduction WFL. Knee flexion WFL. Ankle dorsiflexion WFL. Ankle plantarflexion WFL. Left Lower Extremity: Hip flexion WFL. Hip abduction WFL. Knee flexion WFL. Ankle dorsiflexion WFL. Ankle plantarflexion WFL. Strength: Right Upper Extremity: Shoulder flexors 5/5. Shoulder abductors 5/5. Elbow flexors 5/5. Elbow extensors 5/5. Calibration Laboratory Technician strong. Left Upper Extremity: Shoulder flexors 5/5. Shoulder abductors 5/5. Elbow flexors 5/5. Elbow extensors 5/5. Calibration Laboratory Technician strong. Right Lower Extremity: Hip flexors 3+/5. Hip abductors 3+/5. Knee flexors 4/5. Knee extensors 4/5. Ankle dorsiflexors 3/5. Ankle plantarflexors 3/5. Left Lower Extremity:Hip flexors 5/5. Hip abductors 5/5. Knee flexors 5/5. Knee extensors 5/5. Ankle dorsiflexors 3/5. Ankle plantarflexors 3/5. Sensation: Intact as to pain and pressure on bilateral lower extremities from gluteal region down to proximal legs bilaterally. Diminished on distal legs and feet. Bed Mobility/Transfers: Rolling minimal assist Supine to sit CGA with HOB at 45 degrees using both hands for support Sit to supine CGA with HOB at 45 degrees using both hands for support Sit to stand minimal assist x 2 during the first attempt with poor control of bilateral feet; CGA during the second attempt about 4 hours after surgery Stand to sit minimal assist x 2 during the first attempt with poor control of bilateral feet; CGA during the second attempt about 4 hours after surgery Gait: Unable to safely walk during the first attempt. During the second attempt around 4:25 in the afternoon, patient was able to tolerate 200 feet of level surface ambulation with contact-guard assist using front-wheeled walker with step to gait pattern and minimal verbal cueing for overall safety. Decreased kimberly. No pain complaint throughout walking activity. Denied headache, chest pain, and dizziness throughout. Balance: Static Sitting: Normal Dynamic Sitting: Normal Static Standing: Poor during the first attempt due to post anesthesia effect; fair during the second afternoon session Dynamic Standing: Poor during the first attempt due to post anesthesia effect; Fair during the second afternoon session Special Tests: Mobility Limitations Standardized Measure [facility] AM-PAC 6 clicks Basic Mobility Inpatient Short Form: Raw Score: 13 during the first attempt; 18 during the second attempt CMS Score: 65% deficit during the first attempt; 47% deficit during the second attempt Informed Consent/Education: Patient instructed in purpose of PT consult and plan of care. Assessment: Need for assistive device for all mobility ADL performance, unsteadiness in gait, difficulty with walking, and functional mobility decline. Patient is a 69-year-old male with degenerative joint disease of the right hip and is status post right anterior total hip arthroplasty on postoperative day 0. Patient presents with clinical signs and symptoms consistent with current/admitting diagnoses that have resulted to mobility limitations, gait instability, generalized weakness, and impairment of motor control as demonstrated by the following impairment level findings: 1. Decreased strength to R LE major muscle groups 2. Impaired balance 3. Impaired activity tolerance Impairments are contributing to the following functional limitations: 1. Dependent bed mobility skills 2. Increased dependence with transfers 3. Inability to safely ambulate without assistive device and physical assistance 4. Increase completion time for mobility ADL performance 5. Increased fall risk 6. Inability to negotiate steps alone safely Patient is assessed as a 54319 moderate complexity based on the following: History: 69-year-old male with impairment level findings, functional rotations, and past medical history as listed above Examination: Demonstrable impairment in strength, balance, and range of motion with underlying impairments and functional limitations as documented above Presentation: Evolving Decision Makin moderate complexity Goals: Goals X1 week 1. Supine-Sit independent 2. Sit-Supine independent 3. Sit-Stand independent 4. Stand-Sit independent 5. Bed-Chair independent 6. Chair-Bed independent 7. Independent gait on level surface with use of least restrictive device for at least 300 feet without report of pain nor dyspnea 8. Independent stair negotiation while holding onto bilateral rails for at least 10 steps without report of pain nor dyspnea 9. Independent with home exercise program 10. Good static and dynamic standing balance/tolerance Plan of Care/Treatment Plan: 1-2x/day, 7 days/week x 1 week. Initiate Physical Therapy intervention for strengthening, bed mobility, transfers, gait, stairs, balance training, use of assistive device. DISCHARGE RECOMMENDATIONS: May benefit from skilled physical therapy services according to orthopedic surgeon's timeline recommendations. Patient will be educated and trained on home exercise program per [facility] exercise protocol in preparation for outpatient physical therapy services. TREATMENT CODE/TIME: 9716 2 x 21 minutes beginning at 1540 p.m. 56345 x 26 minutes beginning at 16:25 PM. Thank you very much for this referral. Maxine Mcmahon PT, DPT, CLT [facility] [place], [place]
--- NOTE | 2019-07-19 17:21 | PDOC.CMPRO ---
- If Service Date Differs Date of service: 07/19/19 Time of Service: 17:21 Care Management Progress Note CM was consulted to coordinate a FWW for pt prior to discharge. He is returning home, same day as surgery. He has been medically cleared. PT assisted in adjusting the FWW. CM offered additional services, if needed.
--- NOTE | 2019-07-20 12:40 | INDS_ITS ---
Date of service: 07/20/19 PT Notes Visit Reasons: (R) HIP DJD Inpatient Physical Therapy Discharge Summary Dates: 07/20/2019 Dates of Service: 07/19/2019 only Referring Doctor: Jerald Oneal MD PT Orders: PT CONSULT: Status post Ortho surgery. Status post right DEBRA. Hopeful same-day discharge. Precautions: Fall. Standard. WBAT on right LE. Patient Profile/Admitting Diagnosis: Patient is a 69-year-old male with degenerative joint disease of the right hip and is status post right anterior total hip arthroplasty on postoperative day 0. PMHX: Medical History Current smoker on some days (Acute) 3 cigarettes per day Hx of gallstones (Acute) 03/05/18 Hypertension (Chronic) Kidney stone (Chronic) Surgical History H/O vasectomy (Acute) Hx of colonoscopy (Chronic) Hx of tonsillectomy (Chronic) Social History/Home Situation: Patient lives in a private home with his with 2 steps to enter. They have everything he can access on the main floor of the house. Independent with all ADLs prior to surgery. 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 He has a barn that he is 60 feet away from his house that he walks to on a daily basis. He loves ice fishing. Equipment Owned/DME: None Subjective: NT. See most recent PT notes. Objective: General Observation: NT. See most recent PT notes. Mental Status: NT. See most recent PT notes. Pain: NT. See most recent PT notes. ROM: Right Upper Extremity: Shoulder Flexion WFL. Shoulder abduction WFL. Elbow flexion WFL. Wrist flexion WFL. Opening and closing of hand WFL. Left Upper Extremity: Shoulder Flexion WFL. Shoulder abduction WFL. Elbow flexion WFL. Wrist flexion WFL. Opening and closing of hand WFL. Right Lower Extremity: Hip flexion WFL. Hip abduction WFL. Knee flexion WFL. Ankle dorsiflexion WFL. Ankle plantarflexion WFL. Left Lower Extremity: Hip flexion WFL. Hip abduction WFL. Knee flexion WFL. Ankle dorsiflexion WFL. Ankle plantarflexion WFL. Strength: Right Upper Extremity: Shoulder flexors 5/5. Shoulder abductors 5/5. Elbow flexors 5/5. Elbow extensors 5/5. Professional Programmer Analyst strong. Left Upper Extremity: Shoulder flexors 5/5. Shoulder abductors 5/5. Elbow flexors 5/5. Elbow extensors 5/5. Professional Programmer Analyst strong. Right Lower Extremity: Hip flexors 3+/5. Hip abductors 3+/5. Knee flexors 4/5. Knee extensors 4/5. Ankle dorsiflexors 3/5. Ankle plantarflexors 3/5. Left Lower Extremity:Hip flexors 5/5. Hip abductors 5/5. Knee flexors 5/5. Knee extensors 5/5. Ankle dorsiflexors 3/5. Ankle plantarflexors 3/5. Sensation: Intact as to pain and pressure on bilateral lower extremities from gluteal region down to proximal legs bilaterally. Diminished on distal legs and feet. Bed Mobility/Transfers: Rolling minimal assist Supine to sit CGA with HOB at 45 degrees using both hands for support Sit to supine CGA with HOB at 45 degrees using both hands for support Sit to stand minimal assist x 2 during the first attempt with poor control of bilateral feet; CGA during the second attempt about 4 hours after surgery Stand to sit minimal assist x 2 during the first attempt with poor control of bilateral feet; CGA during the second attempt about 4 hours after surgery Gait: Unable to safely walk during the first attempt. During the second attempt around 4:25 in the afternoon, patient was able to tolerate 200 feet of level surface ambulation with contact-guard assist using front-wheeled walker with step to gait pattern and minimal verbal cueing for overall safety. Decreased kimberly. No pain complaint throughout walking activity. Denied headache, chest pain, and dizziness throughout. Balance: Static Sitting: Normal Dynamic Sitting: Normal Static Standing: Poor during the first attempt due to post anesthesia effect; fair during the second afternoon session Dynamic Standing: Poor during the first attempt due to post anesthesia effect; Fair during the second afternoon session Assessment: Need for assistive device for all mobility ADL performance, unsteadiness in gait, difficulty with walking, and functional mobility decline. Patient is a 69-year-old male with degenerative joint disease of the right hip and is status post right anterior total hip arthroplasty on postoperative day 0. Goals: Goals X1 week 1. Supine-Sit independent NOT MET 2. Sit-Supine independent NOT MET 3. Sit-Stand independent NOT MET 4. Stand-Sit independent NOT MET 5. Bed-Chair independent NOT MET 6. Chair-Bed independent NOT MET 7. Independent gait on level surface with use of least restrictive device for at least 300 feet without report of pain nor dyspnea NOT MET 8. Independent stair negotiation while holding onto bilateral rails for at least 10 steps without report of pain nor dyspnea NOT MET 9. Independent with home exercise program NOT MET 10. Good static and dynamic standing balance/tolerance NOT MET DISCHARGE RECOMMENDATIONS: May benefit from skilled physical therapy services according to orthopedic surgeon's timeline recommendations. Patient will be educated and trained on home exercise program per [facility]KA exercise protocol in preparation for outpatient physical therapy services. TREATMENT CODE/TIME: NC. Thank you very much for this referral. Maxine Mcmahon PT, DPT, CLT [facility] [place], [place]
== END 2019-07-19 19:25 | disposition home or self-care (01) ==
LOC: MS 15:44 → PDS 07-20 08:31
PROVIDERS: Admitting Provider Student in an Organized Health Care Education/Training Program; PCP Family Medicine; Visit Provider Student in an Organized Health Care Education/Training Program
PROC: 0SR904A Replacement of Right Hip Joint with Ceramic on Polyethylene Synthetic Substitute, Uncemented, Open Approach (ICD-10-PCS; CPT 27130; principal; 2019-07-19 10:45)
DX: M16.11 Unilateral primary osteoarthritis, right hip (principal); M25.561 Pain in right knee; Z96.641 Presence of right artificial hip joint; Z72.0 Tobacco use; I10 Essential (primary) hypertension
CPT/HCPCS: 27130; C1776; 97116; 97162; NC; 73501; G0378; J0171; J0690; J1100; J1885; J2001; J2405; J2704; J3010

== ENCOUNTER 2019-08-08 12:28 | Outpatient (CLI) | payer MEDICARE, BC, SELFPAY ==
--- NOTE | 2019-08-08 11:45 | DI.RAD_ITS ---
EXAM: XR HIP RT AP LAT ONLY CLINICAL HISTORY: f/u R DEBRA. TECHNIQUE: 2D digital imaging was performed. COMPARISON: CR XR HIP RT COMPLETE AP PELVIS from 03/18/2019 XR HIP RT IN OR from 07/19/2019 FINDINGS: There has been no change in the alignment of the right hip prosthesis. No abnormal bony lucencies ar e seen. There are stable moderate degenerative changes of the left hip. DATA REPOSITORY: RADIATION DOSE DELIVERED:
== END 2019-08-08 12:48 ==
PROVIDERS: PCP Family Medicine; Referring Provider Family Medicine; Visit Provider Student in an Organized Health Care Education/Training Program
DX: M16.11 Unilateral primary osteoarthritis, right hip (principal); Z96.641 Presence of right artificial hip joint; M16.12 Unilateral primary osteoarthritis, left hip; Z47.89 Encounter for other orthopedic aftercare
CPT/HCPCS: 73502

== ENCOUNTER → 2019-09-05 11:11 | Outpatient (BNVA) | payer MEDICARE, BC, SELFPAY | PROVIDERS: PCP Family Medicine; Referring Provider Family Medicine; Visit Provider Student in an Organized Health Care Education/Training Program | DX: M16.11 Unilateral primary osteoarthritis, right hip (principal); Z47.1 Aftercare following joint replacement surgery; Z96.641 Presence of right artificial hip joint; I10 Essential (primary) hypertension ==

== ENCOUNTER → 2019-09-12 10:45 | Outpatient (BNVA) | payer MEDICARE, BC, SELFPAY | PROVIDERS: PCP Family Medicine; Referring Provider Family Medicine; Visit Provider Student in an Organized Health Care Education/Training Program | DX: Z47.1 Aftercare following joint replacement surgery (principal); Z96.641 Presence of right artificial hip joint; M16.11 Unilateral primary osteoarthritis, right hip ==

== ENCOUNTER 2021-01-01 08:01 | Emergency (ER) | payer MEDICARE, SELFPAY ==
[2021-01-01 08:05] VITALS: BP 148/101; PULSE 80; RESP 16; TEMP 36.8; O2SAT 98
--- NOTE | 2021-01-01 08:18 | W.ED.GENAD ---
Discharge Plan Disposition Patient Disposition: HOME Condition: Improving Discharge Details Clinical Impression: Acute left flank pain Primary Care Provider: Clement Queen ED Provider: Jaime Lugo Home Meds and New Rx's Prescriptions: New ketorolac 10 mg tablet 10 mg PO Q8H PRN (Reason: pain) Qty: 7 RF: 0 No Action lisinopril 20 mg Tablet 20 mg PO DAILY RF: 0 acetaminophen 500 mg tablet 1,000 mg PO Q8H PRN (Reason: pain) Qty: 90 RF: 3 Discharge Instructions Instructions: Flank Pain (ED) Additional Instructions: Continue Tylenol in the morning and evening. For midday may use the prescribed ketorolac if needed for ongoing pain. Take this medication with food and do not take it in addition to Advil/ibuprofen/Naprosyn. Return if develop a fever, vomiting, recurrent or worsening pain. Follow-up with Dr. Queen or Dr. Martines in clinic for your routine care. Medical Decision Making 70-year-old male with a history of previous right 2 mm kidney stone. Presents with 1 week of progressive left flank pain that has been intermittent and particularly worse last night. Is noted some dark-colored urine in the mornings. No fever or vomiting. He presents slightly hypertensive, otherwise unremarkable vital signs, and exam that reveals left flank tenderness to percussion. May be muscular strain but high consideration of left renal colic and patient referred for IV, given ketorolac, screening labs obtained he is referred for noncontrast CTs scan. Patient's labs are reassuring. There was positive trace hematuria, unremarkable CBC and reassuring chemistries. CT scan without evidence of acute abnormality. Suspect that she may have either passed a small kidney stone or have blood back strain. We will trial Toradol as needed. He is stable for discharge home will return for any acute concerns or worsening. HPI General Mode of arrival: ambulatory. Date/Time Provider Initiated Documentation: 01/01/21 08:02. Limitations to Documentation: no limitations. Information obtained by: patient. History of Present Illness 70 year old M presents to the emergency department with the chief complaint of L flank pain, described as moderate, and is localized to the left. Patient started experiencing this day(s) and it has been intermittent. No relieving factors improve symptom(s), No exacerbating factors reported . Related Data Home Medications Medication Instructions Recorded Confirmed lisinopril 20 mg PO DAILY 12/24/18 10/22/21 acetaminophen 1,000 mg PO Q8H PRN #90 tab 07/19/19 01/01/21 ketorolac 10 mg PO Q8H PRN #7 tab 01/01/21 Previous Rx's Medication Instructions Recorded acetaminophen 1,000 mg PO Q8H PRN #90 tab 07/19/19 ketorolac 10 mg PO Q8H PRN #7 tab 01/01/21 Allergies Allergy/AdvReac Type Severity Reaction Status Date / Time No Known Allergies Allergy Unverified 01/01/21 08:08 General Stated Complaint: FlankPain QUETA: 3 Review of Systems Narrative: no vomiting or fever, 6 systems reviewed and otherwise neg [facility] Medical History (Updated 01/01/21 @ 09:38 by Jaime Lugo MD) Current smoker on some days 3 cigarettes per day Hx of gallstones 03/05/18 Hypertension Kidney stone Surgical History H/O vasectomy Hx of colonoscopy Hx of tonsillectomy Social History Smoking/Tobacco Use Status: Current every day Smoking risk assessment performed?: Yes Alcohol Intake: current Alcohol Intake frequency: holidays/special occasions only Drug use: Never Substance use type: does not use Current gender identity: male Do you feel safe at home: Yes Do you feel safe in your relationship?: Yes Exam Narrative Exam Narrative: GEN: awake, alert, oriented 3. Ambulatory, pleasant, well groomed, interactive. HEAD: Normocephalic, atraumatic ENT: Mucous membranes moist, oropharynx unremarkable, External ear exam unremarkable EYES: PERRL, EOMI NECK: Full ROM, no TOSHIA, no menigismus CHEST/RESP: Nontender, clear to auscultation bilateral, no wheeze/rhonchi/rales CARDIOVASCULAR: RRR, no murmur, rub rose. 2+ Rad pulse bilateral ABDOMEN: Soft, nontender, no mass. +Bowel sounds Flank: Left flank tender to percussion. EXT: Full ROM, no edema, no rash Neuro: Grossly normal neurologic exam, conversant, interactive. Psych: Speech fluent, thoughts congruent, affect normal Course Vital Signs Vital signs: Vital Signs Temperature 36.8 C 01/01/21 08:05 Pulse 80 01/01/21 08:05 Respiratory Rate 16 01/01/21 08:05 Blood Pressure 148/101 H 01/01/21 08:05 Pulse Oximetry 98 01/01/21 08:05 Temperature 36.8 C 01/01/21 08:05 Temperature Source Temporal Artery Scan 01/01/21 08:05 Pulse 80 01/01/21 08:05 Respiratory Rate 16 01/01/21 08:05 Respiratory Effort Non-Labored 01/01/21 08:15 Blood Pressure 148/101 H 01/01/21 08:05 Blood Pressure Position Sitting 01/01/21 08:05 Pulse Oximetry 98 01/01/21 08:05 Oxygen Delivery Method Room Air 01/01/21 08:05 Oxygen Flow Rate 0 01/01/21 08:05 Pain Level 8 01/01/21 08:05 Comment 01/01/21 08:05
[2021-01-01 08:24] LABS: Bilirubin Negative (Negative); Blood Trace-intact (Negative); Clarity Clear (Clear); Glucose Negative (Negative); Ketones Negative (Negative); Leukocyte Esterase Negative (Negative); Nitrite Negative (Negative); Specific Gravity 1.025 (1.005-1.025); Urobilinogen 0.2 EU/dL (Up TO 0.2); pH 5.5 (5-8)
[2021-01-01 08:34] LABS: Bacteria Negative HPF (Negative); C & S Indicated? No; Casts Negative LPF (Negative); Crystals Negative HPF (Negative); Epithelial Cells Rare HPF (Negative); Mucus Negative (Negative); RBC 0-2 HPF (0-2); WBC 0-2 HPF (0-5)
[2021-01-01] MEDS: Ketorolac 15 MG/ML VIAL IVP (08:37)
[2021-01-01] MEDS: Normal Saline 1,000 ML 150 ML IV (08:38)
[2021-01-01] MEDS: Normal Saline Flush 10 ML SYR IVP (08:39)
[2021-01-01 08:46] LABS: Abs Immature Grans 0.02 10^3/uL (0.0-0.06); Absolute Basophil Count 0.03 10^3/uL (0.0-0.2); Absolute Eosinophil Count 0.22 10^3/uL (0.0-0.7); Absolute Monocyte Count 0.75 10^3/uL (0.1-0.8); Basophils % 0.4; Eosinophils % 2.9; HCT 48.7 % (40.0-50.0); HGB 16.7 g/dL (13.5-17.5); Immature Grans % 0.3; Lymphocytes % 18.4; MCH 28.7 pg (27.0-33.0); MCHC 34.3 % (32.0-36.0); MCV 83.7 fL (80-95); MPV 10.8 fL (8.0-11.0); Monocytes % 9.8; Neutrophils % 68.2; Nucleated RBC 0 %; Platelet Count 237 10^3/uL (130-400); RBC 5.82 10^6/uL (4.36-5.78); RDW 12.7 % (11.8-14.1); RDW-SD 38.5 fL; WBC 7.62 10^3/uL (4.4-10.8)
[2021-01-01 08:58] LABS: ALT 31 U/L (16-63); AST 14 U/L (15-37); Alkaline Phosphatase 64 U/L (46-116); Anion Gap 8.5 mmol/L (3-11); BUN 18 mg/dL (7-18); Bilirubin, Total 0.6 mg/dL (0.2-1.0); CO2 29.5 mmol/L (21.0-32.0); CREATININE 1.1 mg/dL (0.70-1.30); Chloride 102 mmol/L (98-107); Glucose 125 mg/dL (74-106); Potassium 3.7 mmol/L (3.5-5.1); Sodium 140 mmol/L (136-145); Total Protein 7.4 g/dL (6.4-8.2)
--- NOTE | 2021-01-01 09:02 | DI.CT_ITS ---
Exam(s) CT RENAL COLIC WO EXAM: CT RENAL COLIC WO CLINICAL HISTORY: L flank pain, hx of prev stone (R). TECHNIQUE: Imaging Protocol: Axial computed tomography images with coronal and sagittal reformatted images were created and reviewed. FINDINGS: ABDOMEN: Lung Bases: Normal where visualized. Coronary artery calcification is present. Liver: Normal density. There is a stable cyst in the right lobe of the liver. Gallbladder and biliary tract: Cholelithiasis. No biliary ductal dilatation. Pancreas: Normal density, no abnormal calcifications or inflammatory process. Spleen: Normal. Kidneys: Normal size, contour and axis.No radiodense stones or obstructive uropathy. No masses seen. Adrenal glands: No mass is seen. Lymph nodes: Within normal limits. Abdominal Aorta: Abdominal portion non-dilated. Atherosclerosis. PELVIS: Bladder:Symmetric distention, no gross wall thickening. The urinary bladder is partially obscured by artifact from the patient's right total hip replacement. Bowel: No obstruction or bowel wall thickening. Appendix is unremarkable. There is diverticulosis in the sigmoid colon, but no evidence of acute diverticulitis. Peritoneal cavity: No ascites, collection or mesenteric inflammatory response. No free air. Reproductive organs: There is an enlarged prostate gland. Bones: The patient has a right total hip replacement. No acute osseous abnormality. Soft Tissues: Small fat containing umbilical hernia. IMPRESSION: 1. No evidence of nephrolithiasis or hydronephrosis. 2. Cholelithiasis. No evidence of acute cholecystitis. 3. Sigmoid diverticulosis but no evidence of acute diverticulitis. 4. Enlarged prostate gland. 5. Results of this exam have been verbally communicated with provider. RADIATION DOSE DELIVERED: 777.58mGy.cm Total DLP DATA REPOSITORY: All CT scans at this facility are submitted to the National Radiology Data Registry (NRDR) Dose Index Registry (DIR) with the [employer] (ACR). RADIATION OPTIMIZATION: All CT scans at this facility use at least one of these dose optimization te chniques: automated exposure control; mA and/or kV adjustment per patient size (includes targeted exa ms where dose is matched to clinical indication); or iterative reconstruction.
[2021-01-01 09:28] VITALS: BP 141/85; RESP 16; TEMP 36.6; O2SAT 96
--- NOTE | 2021-01-04 15:20 | NUR.NOTE ---
pt told to take ibuprofen 600mg TID as needed after his ketoralac runs out.-per Dr Lugo.Nursing Note:
== END 2021-01-01 09:49 | disposition home or self-care (01) ==
PROVIDERS: Emergency Provider Emergency Medicine; PCP Family Medicine
DX: R10.9 Unspecified abdominal pain (principal); Z87.442 Personal history of urinary calculi; R31.9 Hematuria, unspecified
CPT/HCPCS: 80053; 96361; 96374; 99284; 74176; 81003; 81015; 85025; J1885

== ENCOUNTER 2021-01-23 10:04 | Emergency (ER) | payer MEDICARE, SELFPAY ==
[2021-01-23 10:07] VITALS: BP 161/104; PULSE 95; RESP 16; TEMP 36.7; O2SAT 99
--- NOTE | 2021-01-23 10:33 | ED.GENADUL_ITS ---
Discharge Plan Disposition Patient Disposition: HOME Condition: Stable Discharge Details Clinical Impression: Left low back pain Primary Care Provider: Clement Queen ED Provider: Chester Mccabe Home Meds and New Rx's Prescriptions: New diazepam [Valium] 5 mg tablet 5 mg PO BID PRN (Reason: spasm) Qty: 20 RF: 0 ibuprofen 200 mg capsule 600 mg PO Q6H PRNQty: 90 RF: 0 Continued lisinopril 20 mg Tablet 10 mg PO DAILY RF: 0 acetaminophen 500 mg tablet 1,000 mg PO Q8H PRN (Reason: pain) Qty: 90 RF: 3 Discharge Instructions Instructions: Muscle Spasm (ED) Additional Instructions: Please take ibuprofen over the counter. Take 600mg by mouth every 6-8 hours as needed for pain. Please take acetaminophen (tylenol) - 1000mg every 8 hours by mouth as needed for pain. Take Valium as prescribed for muscle spasm. Avoid activities that worsen pain. No prolonged sitting. Please contact your primary care physician to arrange follow-up. Return to the ER for any worsening or new concerning symptoms. Referrals: Clement Queen [Primary Care Provider] - Discharge Data Discharge Date/Time-TO BE ENTERED AT DEPARTURE: 01/23/21 11:10 Medical Decision Making 70-year-old male here with 3 to 4 weeks of left low back pain. Patient is focally tender left paraspinal low thoracic high lumbar with no midline tenderness or deformity. Neurologically intact. Patient was seen here on 01/01/2021 and had comprehensive work-up including CT imaging that did not reveal renal stone or other concerning etiology. He did have trace hematuria at that time. Urinalysis repeated today and no hematuria, no leukourea. Exam and history consistent with muscle spasm. Patient has been taking Tylenol which I did advise he continue. Plan to switch Flexeril to Valium. Plan to initiate treatment with ibuprofen and lidocaine patch. Patient was encouraged to follow-up with his primary care physician and to return immediately for any worsening or new concerning symptoms. HPI General Mode of arrival: ambulatory . Date/Time Provider Initiated Documentation: 01/23/21 10:15 . Limitations to Documentation: no limitations . Information obtained by: patient . HPI Narrative: 70-year-old male presents with chief complaint of left low back pain. Patient notes he has had left low back pain waxing and waning over the past 3 to 4 weeks. He was seen here initially on 1021 with about a week of pain. He had diagnostic work-up including labs and CT imaging. Etiology was felt to be musculoskeletal and he was discharged on ketorolac. He notes pain did seem to be improving but thinks he may have exacerbated it with prolonged sitting with drive to [place]. He was seen in [place] again for discomfort and again it was felt to be due to musculoskeletal etiology and he was prescribed Flexeril. He states he has taken Flexeril and it has provided some relief. Today he took Tylenol and continues to have pain. He states it feels like a spasm and at times feels like it is vibrating. Pain is moderate to severe. He denies associated numbness or tingling. No bowel or bladder dysfunction. No abdominal pain. Related Data Home Medications Medication Instructions Recorded Confirmed lisinopril 10 mg PO DAILY 03/05/18 01/23/21 acetaminophen 1,000 mg PO Q8H PRN #90 tab 07/19/19 01/23/21 diazepam [Valium] 5 mg PO BID PRN #20 tab 01/23/21 ibuprofen 600 mg PO Q6H PRN #90 cap 01/23/21 Previous Rx's Medication Instructions Recorded acetaminophen 1,000 mg PO Q8H PRN #90 tab 07/19/19 diazepam [Valium] 5 mg PO BID PRN #20 tab 01/23/21 ibuprofen 600 mg PO Q6H PRN #90 cap 01/23/21 Allergies Allergy/AdvReac Type Severity Reaction Status Date / Time No Known Allergies Allergy Unverified 01/23/21 10:16 General Stated Complaint: FlankPain QUETA: 3 Review of Systems All systems reviewed & are unremarkable except as noted in HPI and below Constitutional Constitutional: Denies fever(s) Gastrointestinal Gastrointestinal: Reports as per HPI Genitourinary Genitourinary: Denies hematuria, Denies difficulty urinating, Denies dysuria and Denies urinary frequency Musculoskeletal Musculoskeletal: Reports as per HPI Integumentary/Breasts Skin/Breast: Denies rash [facility] Active Problem List Acute left flank pain (Acute) Left low back pain (Acute) Osteoarthritis of right hip (Acute) Medical History Current smoker on some days 3 cigarettes per day Hx of gallstones 03/05/18 Hypertension Kidney stone Surgical History H/O vasectomy Hx of colonoscopy Hx of tonsillectomy Social History Smoking/Tobacco Use Status: Current every day Smoking risk assessment performed?: Yes Alcohol Intake: current Alcohol Intake frequency: holidays/special occasions only Drug use: Never Substance use type: does not use Current gender identity: male Do you feel safe at home: Yes Do you feel safe in your relationship?: Yes Exam Const General: cooperative and no acute distress HENMT Mouth: moist mucous membranes Eyes Conjunctivae: normal conjunctivae Sclera: normal sclerae Neck Neck: trachea midline and supple Resp Auscultation: clear to auscultation bilaterally, no rales, no rhonchi and no wheezes Cardio Rate: regular rate and not tachycardic Rhythm: regular rhythm GI Palpation: soft, not firm, no guarding, no masses, not rigid and nontender Back/Spine/Pelvis Back: no CVA tenderness, No erythema, No warmth and No ecchymosis Cervical Spine: No cervical spinal tenderness Thoracic/Lumbar Spine: paraspinal tenderness (Left low thoracic, high lumbar), No thoracic spinal tenderness and No lumbar spinal tenderness Skin General skin exam: no rashes or lesions noted Neuro General: patient alert, patient awake, patient oriented x3 and tone normal Cognition: normal cognition Speech: speech normal Gait: normal gait Motor: strength 5/5 throughout Sensory Exam: no sensory deficits noted DTR's: Rt Patellar: 2+ and Lt Patellar: 2+ Extrem General: no edema Psych Appearance: grossly normal Mental Status: mental status grossly normal Speech and Movement: speech and movement normal Course Vital Signs Vital signs: Vital Signs Temperature 36.7 C 01/23/21 10:07 Pulse 95 H 01/23/21 10:07 Respiratory Rate 16 01/23/21 10:07 Blood Pressure 161/104 H 01/23/21 10:07 Pulse Oximetry 99 01/23/21 10:07 Temperature 36.7 C 01/23/21 10:07 Temperature Source Skin 01/23/21 10:07 Pulse 95 H 01/23/21 10:07 Respiratory Rate 16 01/23/21 10:07 Respiratory Effort 01/23/21 10:17 Blood Pressure 161/104 H 01/23/21 10:07 Blood Pressure Position Sitting 01/23/21 10:07 Pulse Oximetry 99 01/23/21 10:07 Oxygen Delivery Method Room Air 01/23/21 10:07 Oxygen Flow Rate 0 01/23/21 10:07 Pain Level 10 01/23/21 10:20 Comment did not take lisinopril x3 days while on flexeril 01/23/21 10:07
[2021-01-23] MEDS: diazePAM 2 MG TAB PO (10:39)
[2021-01-23] MEDS: Ibuprofen 600 MG TAB PO (10:39)
[2021-01-23] MEDS: Lidocaine 5% Patch 1 PATCH TP (10:40)
[2021-01-23 10:43] LABS: Bilirubin Negative (Negative); Blood Negative (Negative); Clarity Clear (Clear); Glucose Negative (Negative); Ketones Negative (Negative); Leukocyte Esterase Negative (Negative); Nitrite Negative (Negative); Specific Gravity >= 1.030 (1.005-1.025); Urobilinogen 0.2 EU/dL (Up TO 0.2)
[2021-01-23 11:16] VITALS: BP 161/104; PULSE 95; RESP 16; TEMP 36.7; O2SAT 99
== END 2021-01-23 11:10 | disposition home or self-care (01) ==
PROVIDERS: Emergency Provider Student in an Organized Health Care Education/Training Program; PCP Family Medicine
DX: M54.50 Low back pain, unspecified (principal)
CPT/HCPCS: 99283; 81003

== ENCOUNTER 2024-06-19 12:17 | Outpatient (REF) | payer MEDICARE, SELFPAY ==
[2024-06-19 14:30] LABS: HCT 52.5 % (40.0-50.0); HGB 17.7 g/dL (13.5-17.5); MCH 28.5 pg (27.0-33.0); MCHC 33.7 % (32.0-36.0); MCV 84 fL (80-95); MPV 11.1 fL (8.0-11.0); Platelet Count 220 10^3/uL (130-400); RBC 6.22 10^6/uL (4.36-5.78); RDW-SD 39.7 fL; WBC 6.66 10^3/uL (4.4-10.8)
[2024-06-19 15:34] LABS: Hemoglobin A1C 5.3 % (<5.7)
[2024-06-19 16:45] LABS: ALT 23 U/L (16-63); AST 14 U/L (15-37); Albumin 4.2 g/dL (3.4-5.0); Alkaline Phosphatase 95 U/L (46-116); Anion Gap 11.4 mmol/L (3-11); BUN 13 mg/dL (7-18); Bilirubin, Total 0.6 mg/dL (0.2-1.0); CO2 27.6 mmol/L (21.0-32.0); Calcium 9.7 mg/dL (8.5-10.1); Calculated LDL 164 mg/dL (<100); Chloride 109 mmol/L (98-107); Cholesterol 248 mg/dL (<200); Estimated GFR 79.97 (mL/min/1.73m2); Glucose 105 mg/dL (74-106); HDL Cholesterol 49 mg/dL (>or=40); Potassium 5.5 mmol/L (3.5-5.1); Sodium 148 mmol/L (136-145); Total Protein 6.8 g/dL (6.4-8.2); Triglyceride 175 mg/dL (<150)
[2024-06-20 09:43] LABS: PSA, Screening 4.9 ng/mL (<=6.5)
== END 2024-06-19 12:18 | disposition home or self-care (01) ==
LOC: NCHCN 12:17
PROVIDERS: PCP Family Medicine; Visit Provider Family Medicine
DX: E78.2 Mixed hyperlipidemia (principal); R73.03 Prediabetes; Z12.5 Encounter for screening for malignant neoplasm of prostate
CPT/HCPCS: 80053; 80061; 84153; 85027; 83036

== ENCOUNTER 2024-06-24 12:28 | Outpatient (REF) | payer MEDICARE, SELFPAY ==
[2024-06-24 14:58] LABS: Anion Gap 9.9 mmol/L (3-11); BUN 21 mg/dL (7-18); CO2 26.1 mmol/L (21.0-32.0); Calcium 9.5 mg/dL (8.5-10.1); Chloride 105 mmol/L (98-107); Estimated GFR 79.97 (mL/min/1.73m2); Glucose 101 mg/dL (74-106); Potassium 4.3 mmol/L (3.5-5.1); Sodium 141 mmol/L (136-145)
== END 2024-06-24 12:29 | disposition home or self-care (01) ==
LOC: NCHCN 12:28
PROVIDERS: PCP Family Medicine; Visit Provider Family Medicine
DX: I10 Essential (primary) hypertension (principal)
CPT/HCPCS: 80048

== ENCOUNTER 2024-12-31 19:13 | Emergency (ER) | payer MEDICARE, SELFPAY ==
[2024-12-31] VITALS (19 sets, daily range): BP systolic 194–222; BP diastolic 82–118; PULSE 50–74; RESP 14–26; TEMP 36.6; O2SAT 94–96
--- NOTE | 2024-12-31 19:15 | DI.CT_ITS ---
Exam(s) CT ABDOMEN PELVIS W EXAM: CT ABDOMEN PELVIS W CLINICAL HISTORY: periumbilical pain TECHNIQUE: Imaging Protocol: Axial computed tomography images with coronal and sagittal reformatted images were created and reviewed. CONTRAST MATERIAL: Intravenous: Omnipaque 350 Contrast volume:75 mL Oral: No CT CT RENAL COLIC WO from 01/01/2021 FINDINGS: ABDOMEN: Lung Bases: No acute abnormality. Liver: Normal density. There is a new hypodense lesion seen in the dome of the liver measuring 1.2 cm. There is again seen a hypodense lesion adjacent to the gallbladder in the right lobe of the liver measuring 1.6 cm. These findings are nonspecific but should be further evaluated with MRI without and with contrast. Portal, Superior Mesenteric, and Splenic Veins: Unremarkable. Gallbladder and Biliary Tract: Cholelithiasis is present. The common duct measures 1.0 cm. There is no choledocholithiasis. No inflammatory changes are seen around the gallbladder. Pancreas: Normal density, no abnormal calcifications or inflammatory process. Spleen: Normal. Adrenals: No masses seen. Kidneys: Normal size, contour and axis. No radiodense stones or obstructive uropathy. No masses seen. Abdominal Aorta: Abdominal portion non-dilated. Atherosclerotic calcification is present. Bowel: There is diverticulosis of the colon without evidence of acute diverticulitis. There is no evidence of bowel obstruction. There is mild wall thickening seen in the 3rd portion of the duodenum. Appendix is unremarkable. Peritoneal Cavity: No ascites, collection or mesenteric inflammatory response. No free air. Lymph Nodes: Within normal limits. Bones: Within normal limits for the patient's age. The patient has a right total hip arthroplasty. Soft Tissues: There is a small fat containing umbilical hernia. There is no evidence of incarceration. PELVIS: Bladder: Symmetric distention, no gross wall thickening. Reproductive Organs: There is a markedly enlarged prostate gland. Lymph Nodes: Within normal limits. Bones: Within normal limits for the patient's age. IMPRESSION: 1. There is mild wall thickening seen in the 3rd portion the duodenum which may represent a duodenitis. 2. Cholelithiasis. No CT evidence to suggest cholecystitis. If there is continued concern, ultrasound may be obtained for further evaluation. 3. Hypodense lesions in the liver including a new lesion in the dome. Further evaluation with an MRI of the liver without and with contrast is recommended. 4. Colonic diverticulosis without evidence of acute diverticulitis. 5. Prostatic hypertrophy. 6. Small fat containing umbilical hernia without evidence of strangulation or incarceration. 7. The preliminary [facility] report was reviewed. RADIATION DOSE DELIVERED: 421.04mGy.cm Total DLP DATA REPOSITORY: All CT scans at this facility are submitted to the National Radiology Data Registry (NRDR) Dose Index Registry (DIR) with the [employer] (ACR). RADIATION OPTIMIZATION: All CT scans at this facility use at least one of these dose optimization techniques: automated exposure control; mA and/or kV adjustment per patient size (includes targeted exams where dose is matched to clinical indication); or iterative reconstruction.
[2024-12-31] MEDS: MORPHine 10 MG/ML VIAL 6 MG IVP (19:32)
[2024-12-31 19:46] LABS: Abs Immature Grans 0.04 10^3/uL (0.0-0.06); HCT 47.1 % (40.0-50.0); HGB 16.4 g/dL (13.5-17.5); Immature Grans % 0.3 %; MCH 28.9 pg (27.0-33.0); MCHC 34.8 % (32.0-36.0); MCV 83 fL (80-95); MPV 10.5 fL (8.0-11.0); Platelet Count 236 10^3/uL (130-400); RBC 5.68 10^6/uL (4.36-5.78); RDW 12.6 % (11.8-14.1); RDW-SD 38.2 fL; WBC 14.85 10^3/uL (4.4-10.8)
[2024-12-31 19:47] LABS: Glucose Negative (Negative)
[2024-12-31 19:57] LABS: WBC Negative HPF (0-5)
[2024-12-31 19:58] LABS: C & S Indicated? No; Lipase 22 U/L (<78)
[2024-12-31 20:03] LABS: ALT 32 U/L (16-63); AST 15 U/L (15-37); Albumin 4.3 g/dL (3.4-5.0); Alkaline Phosphatase 72 U/L (46-116); Anion Gap 6.9 mmol/L (3-11); BUN 17 mg/dL (7-18); Bilirubin, Total 0.7 mg/dL (0.2-1.0); CO2 30.1 mmol/L (21.0-32.0); Calcium 9.3 mg/dL (8.5-10.1); Chloride 102 mmol/L (98-107); Estimated GFR 79.97 (mL/min/1.73m2); Glucose 114 mg/dL (74-106); Potassium 4.0 mmol/L (3.5-5.1); Sodium 139 mmol/L (136-145); Total Protein 7.3 g/dL (6.4-8.2)
[2024-12-31] MEDS: Normal Saline Flush 10 ML SYR IVP (20:12)
[2024-12-31] MEDS: Omnipaque 350 MG/ML 100 ML BTL IJ (20:12)
[2024-12-31] MEDS: Normal Saline - Diluent 50 ML VIAL IJ (20:12)
--- NOTE | 2024-12-31 21:27 | DI.VRAD_ITS ---
PROCEDURE INFORMATION: Exam: CT Abdomen And Pelvis With Contrast Exam date and time: 12/31/2024 8:12 PM Age: 74 years old Clinical indication: Abdominal pain; Localized; Other: Periumbillical pain; Prior surgery; Surgery date: 6+ months; Surgery type: Hip surgery and vasectomy; Periumbilical pain TECHNIQUE: Imaging protocol: Computed tomography of the abdomen and pelvis with contrast. Radiation optimization: All CT scans at this facility use at least one of these dose optimization techniques: automated exposure control; mA and/or kV adjustment per patient size (includes targeted exams where dose is matched to clinical indication); or iterative reconstruction. Contrast material: OMNIPAQUE 350; Contrast volume: 75 ml; Contrast route: INTRAVENOUS (IV); COMPARISON: CT RENAL COLIC WO 01/01/2021 9:03 AM FINDINGS: Lungs: Mild atelectasis is present at the dependent lung bases. Liver: The liver has a normal appearance. Multiple circumscribed hypodense foci are present within the liver suggesting the presence of hepatic cysts which are incompletely characterized. Gallbladder and biliary ducts: Multiple calcified stones are present in the gallbladder fundus. No gallbladder wall thickening or pericholecystic fluid. Pancreas: The pancreas demonstrates normal size. No pancreatic ductal dilatation. Spleen: The spleen demonstrates normal size. Adrenal glands: The adrenal glands have a normal appearance. Kidneys and ureters: The kidneys are normal in size. No hydronephrosis. No hydroureter or ureterolithiasis. Stomach and bowel: The bowel demonstrates overall normal caliber and wall thickness. There are scattered diverticular outpouchings throughout the colon. No mucosal thickening or pericolonic fat stranding. Appendix: The appendix is thin walled. Intraperitoneal space: Unremarkable. No free air. No significant fluid collection. Vasculature: There are scattered atheromatous calcifications throughout the aorta and iliac arteries. There is likely an ulcerated plaque within the infrarenal abdominal aorta. No aneurysmal dilatation. No periaortic fat stranding or wall thickening. Lymph nodes: No enlarged lymph nodes. Urinary bladder: The bladder is thin walled and fluid filled. Reproductive: Unremarkable as visualized. Bones/joints: Bones have a normal appearance. No acute fracture or suspicious bone lesion. Soft tissues: Unremarkable. IMPRESSION: 1. No acute intra-abdominal findings. 2. Normal appendix. 3. Cholelithiasis. No findings to suggest choledocholithiasis or acute cholecystitis. 4. Diverticulosis. No acute diverticulitis. Dictated and Authenticated by: Patricia Osullivan MD. Orderin Dior Kendall MD
--- NOTE | 2024-12-31 21:49 | ED.GENADUL_ITS ---
Discharge Plan Disposition Patient Disposition: Home Discharge Details Clinical Impression: Abdominal pain Primary Care Provider: Lyndsey Squires ED Provider: Enoch Rader Home Meds and New Rx's Prescriptions: New omeprazole 40 mg capsule,delayed release(DR/EC) 40 mg PO DAILY Qty: 60 0RF No Action diazepam [Valium] 5 mg tablet 5 mg PO BID PRN (Reason: spasm) Qty: 20 0RF ibuprofen 200 mg capsule 600 mg PO Q6H PRNQty: 90 0RF lisinopril 20 mg Tablet 10 mg PO DAILY acetaminophen 500 mg tablet 1,000 mg PO Q8H PRN (Reason: pain) Qty: 90 3RF Discharge Instructions Instructions: Abdominal Pain, Adult ED Additional Instructions: Please follow-up with your primary care provider regarding your visit to the emergency department today. Be sure to discuss results of all test performed here today to include radiology, and laboratory testing as well as results for any pending cultures. Specifically, make sure to discuss your abnormal findings on your CT of your liver today as it is recommended that this has a follow-up MRI. Further your imaging showed signs of possible duodenitis or inflammation of the proximal portion of your small bowel. I would recommend trying some antiacid medications to see if this improves your symptoms, but otherwise I would follow-up your primary care if symptoms do not improve as you may need a referral to a historic sites registrar for further testing Should your symptoms worsen, or if you develop new concerning symptoms, please return immediately emergency department for further evaluation. Discharge Data Discharge Date/Time-TO BE ENTERED AT DEPARTURE: 12/31/24 22:12 HPI General Date/Time Provider Initiated Documentation: 12/31/24 19:20 . HPI Narrative: MDM/Narrative: Initial Assessment: 74-year-old male with periumbilical abdominal pain for 1 day after drinking coffee. Decreased p.o. intake due to pain. Denies radiation of pain, fever, chills, nausea, vomiting, diarrhea, chest pain, or other new symptoms. Uses ibuprofen daily for aches and pains. Mild periumbilical tenderness on exam. Differential Diagnosis: - PUD: Considered due to coffee intake and ibuprofen use. Plan: Screening labs, CT imaging. - Gastritis: Considered due to coffee intake and ibuprofen use. Plan: Screening labs, CT imaging. - Acute appendicitis: Considered due to location of pain. Plan: Screening labs, CT imaging. ED Course: - Protonix administered, significant improvement in pain. - CT imaging consistent with duodenitis. - Labs unremarkable. Final Assessment: Improvement in pain after Protonix. CT imaging shows duodenitis. Labs unremarkable. Clinical Impression: Duodenitis Disposition: Discharged to home. Follow up with primary care. Patient Education: Return for new or worsening symptoms. This document was created with assistance from [employer]. The patient consented to its use. HPI: The patient is a 74-year-old male presenting with periumbilical abdominal pain persisting for one day following the consumption of coffee. He reports a re duction in oral intake secondary to discomfort. The pain does not radiate, and he denies associated symptoms such as fever, chills, nausea, vomiting, diarrhea, chest pain, or any other new manifestations. The patient has a history of daily ibuprofen use for generalized musculoskeletal discomfort. ROS: Negative besides as mentioned above Exam: Vital signs: Reviewed. General Appearance: Alert and oriented. No acute distress. HEENT: NCAT, EOMI, not icteric. External ears normal. No rhinorrhea. Moist mucous membranes. Neck: Supple, full range of motion, no observable masses, No meningeal sign. Respiratory: No Respiratory distress. No tachypnea. Cardiovascular: RRR, no edema. Gastrointestinal: Mild periumbilical tenderness. Back: No midline tenderness to palpation or palpable step-offs of the C/T/L spine. Skin: Warm and dry, no rash. Neurological: Normal Gait, Grossly intact. Psychiatric: Appropriate for situation. Labs: Labs unremarkable. CT imaging consistent with duodenitis. Radiology: Exam(s) CT ABDOMEN PELVIS W EXAM: CT ABDOMEN PELVIS W CLINICAL HISTORY: periumbilical pain TECHNIQUE: Imaging Protocol: Axial computed tomography images with coronal and sagittal reformatted images were created and reviewed. CONTRAST MATERIAL: Intravenous: Omnipaque 350 Contrast volume:75 mL Oral: No COMPARISON: CT Abdomen^ROUTINE_ABDOMEN_PELVIS_WITHOUT (Adult) from 03/05/[address] RENAL COLIC WO from 01/01/2021 FINDINGS: ABDOMEN: Lung Bases: No acute abnormality. Liver: Normal density. There is a new hypodense lesion seen in the dome of the liver measuring 1.2 cm. There is again seen a hypodense lesion adjacent to the gallbladder in the right lobe of the liver measuring 1.6 cm. These findings are nonspecific but should be further evaluated with MRI without and with contrast. Portal, Superior Mesenteric, and Splenic Veins: Unremarkable. Gallbladder and Biliary Tract: Cholelithiasis is present. The common duct measures 1.0 cm. There is no choledocholithiasis. No inflammatory changes are seen around the gallbladder. Pancreas: Normal density, no abnormal calcifications or inflammatory process. Spleen: Normal. Adrenals: No masses seen. Kidneys: Normal size, contour and axis. No radiodense stones or obstructive uropathy. No masses seen. Abdominal Aorta: Abdominal portion non-dilated. Atherosclerotic calcification is present. Bowel: There is diverticulosis of the colon without evidence of acute diverticulitis. There is no evidence of bowel obstruction. There is mild wall thickening seen in the 3rd portion of the duodenum. Appendix is unremarkable. Peritoneal Cavity: No ascites, collection or mesenteric inflammatory response. No free air. Lymph Nodes: Within normal limits. Bones: Within normal limits for the patient's age. The patient has a right total hip arthroplasty. Soft Tissues: There is a small fat containing umbilical hernia. There is no evidence of incarceration. PELVIS: Bladder: Symmetric distention, no gross wall thickening. Reproductive Organs: There is a markedly enlarged prostate gland. Lymph Nodes: Within normal limits. Bones: Within normal limits for the patient's age. IMPRESSION: 1. There is mild wall thickening seen in the 3rd portion the duodenum which may represent a duodenitis. 2. Cholelithiasis. No CT evidence to suggest cholecystitis. If there is continued concern, ultrasound may be obtained for further evaluation. 3. Hypodense lesions in the liver including a new lesion in the dome. Further evaluation with an MRI of the liver without and with contrast is recommended. 4. Colonic diverticulosis without evidence of acute diverticulitis. 5. Prostatic hypertrophy. 6. Small fat containing umbilical hernia without evidence of strangulation or incarceration. 7. The preliminary [facility] report was reviewed. Related Data Home Medications ?Medication ?Instructions ?Recorded ?Confirmed lisinopril 20 mg tablet 10 mg PO DAILY 03/05/1801/11 acetaminophen 500 mg tablet 1,000 mg (2 x 500 mg) PO Q 8H PRN 07/19/19 01/23/21 pain #90 tabs diazepam 5 mg tablet (Valium) 5 mg PO BID PRN spasm #2 0 tabs 01/23/21 ibuprofen 200 mg capsule 600 mg (3 x 200 mg) PO Q6H P RN #90 01/23/21 caps omeprazole 40 mg capsule,delayed 40 mg PO DAILY #60 ca ps 12/31/24 release Previous Rx's ?Medication ?Instructions ?Recorded acetaminophen 500 mg tablet 1,000 mg (2 x 500 mg) PO Q 8H PRN 07/19/19 pain #90 tabs diazepam 5 mg tablet (Valium) 5 mg PO BID PRN spasm #2 0 tabs 01/23/21 ibuprofen 200 mg capsule 600 mg (3 x 200 mg) PO Q6H P RN #90 01/23/21 caps omeprazole 40 mg capsule,delayed 40 mg PO DAILY #60 ca ps 12/31/24 release Allergies Allergy/AdvReac Type Severity Reaction Status Date / Time No Known Allergies Allergy Unverified 01/23/21 10:16 General Stated Complaint: Abd Prob QUETA: 3 Course Vital Signs Vital signs: Vital Signs Temperature 36.6 C 12/31/24 19:16 Pulse 62 12/31/24 19:16 Respiratory Rate 18 12/31/24 19:16 Blood Pressure 200/95 H 12/31/24 19:16 Pulse Oximetry 96 12/31/24 19:16 Temperature 36.6 C 12/31/24 19:16 Temperature Source Oral 12/31/24 19:16 Pulse 62 12/31/24 19:16 Respiratory Rate 18 12/31/24 19:16 Blood Pressure 200/95 H 12/31/24 19:16 Pulse Oximetry 96 12/31/24 19:16 Oxygen Delivery Method Room Air 12/31/24 19:16 Oxygen Flow Rate 0 12/31/24 19:16 Pain Level 8 12/31/24 19:38 Lab/Test Results Lab/Test Results: Laboratory Tests Range/Units 12/31/24 19:30 WBC (4.4-10.8) 10^3/uL 14.85 H RBC (4.36-5.78) 10^6/uL 5.68 Hgb (13.5-17.5) g/dL 16.4 Hct (40.0-50.0) % 47.1 MCV (80-95) fL 83 MCH (27.0-33.0) pg 28.9 MCHC (32.0-36.0) % 34.8 RDW (11.8-14.1) % 12.6 Plt Count (130-400) 10^3/uL 236 MPV (8.0-11.0) fL 10.5 Immature Gran % % 0.3 Neutrophils % % 86.2 Lymphocytes % % 7.7 Monocytes % % 5.5 Eosinophils % % 0.1 Basophils % % 0.2 Nucleated RBC % (0.0-0.3) % 0.0 Absolute Neutrophils (1.2-6.7) 10^3/uL 12.80 H Absolute Lymphocytes (1.2-3.4) 10^3/uL 1.14 L Absolute Monocytes (0.1-0.8) 10^3/uL 0.82 H Absolute Eosinophils (0.0-0.7) 10^3/uL 0.01 Absolute Basophils (0.0-0.2) 10^3/uL 0.03 VBG Lactate (<or=2.0) mmol/L 1.1 Sodium (136-145) mmol/L 139 Potassium (3.5-5.1) mmol/L 4.0 Chloride (98-107) mmol/L 102 Carbon Dioxide (21.0-32.0) mmol/L 30.1 Anion Gap (3-11) mmol/L 6.9 BUN (7-18) mg/dL 17 Creatinine (0.70-1.30) mg/dL 1.0 Est GFR (CKD-EPI 2020) (mL/min/1.73m2) 79.97 Glucose (74-106) mg/dL 114 H Calcium (8.5-10.1) mg/dL 9.3 Total Bilirubin (0.2-1.0) mg/dL 0.7 AST (15-37) U/L 15 ALT (16-63) U/L 32 Alkaline Phosphatase (46-116) U/L 72 Total Protein (6.4-8.2) g/dL 7.3 Albumin (3.4-5.0) g/dL 4.3 Lipase (<78) U/L 22 Urine Color (Yellow) Yellow Urine Clarity (Clear) Clear Urine pH (5-8) 6.0 Ur Specific [place] (1.005-1.025) >= 1.030 H Urine Protein (Neg-Trace) mg/dL 30 H Urine Ketones (Negative) mg/dL 40 H Urine Blood (Negative) Small H Urine Nitrite (Negative) Negative Urine Bilirubin (Negative) Negative Urine Urobilinogen (Up to 0.2) mg/dL 0.2 Ur Leukocyte Esterase (Negative) Negative Urine RBC (0-2) HPF 5-10 H Urine WBC (0-5) HPF Negative Ur Epithelial Cells (Negative) HPF Rare Urine Crystals (Negative) HPF Negative Urine Bacteria (Negative) HPF Negative Urine Casts (Negative) LPF Negative Urine Mucus (Negative) Trace Ur Culture Indicated? No Urine Glucose (Negative) mg/dL Negative PFSH All Active Problems (Updated 12/31/24 @ 21:49 by Enoch Rader MD) Abdominal pain (Acute) Left low back pain (Acute) Acute left flank pain (Acute) Osteoarthritis of right hip (Acute) s/p R DEBRA 07/19/19 Medical History (Updated 12/31/24 @ 21:49 by Enoch Rader MD) Hx of gallstones 03/05/18 Current smoker on some days 3 cigarettes per day Kidney stone Hypertension Surgical History H/O vasectomy Hx of colonoscopy Hx of tonsillectomy Social History Smoking/Tobacco Use Status: Current every day Smoking risk assessment performed?: Yes Alcohol Intake: current Alcohol Intake frequency: holidays/special occasions only Drug use: Never Substance use type: does not use Current gender identity: male Do you feel safe at home: Yes Do you feel safe in your relationship?: Yes
[2024-12-31] MEDS: Pantoprazole 40 MG VIAL IVP (22:05)
[2024-12-31] MEDS: Calcium Carbonate 1.5 GM TAB 3 GM PO (22:05)
== END 2024-12-31 22:12 | disposition home or self-care (01) ==
PROVIDERS: Emergency Provider General Practice; PCP Family Medicine
DX: R10.9 Unspecified abdominal pain (principal)
CPT/HCPCS: 99284; 99285; 96374; 96375; 80053; 83690; 74177; 81003; 81015; 83605; 85025; J2270; J2470; J3490

== ENCOUNTER 2025-02-11 09:56 | Outpatient (REF) | payer MEDICARE, SELFPAY ==
[2025-02-11 16:25] LABS: Cholesterol 144 mg/dL (<200); HDL Cholesterol 47 mg/dL (>40)
== END 2025-02-11 09:57 | disposition home or self-care (01) ==
LOC: NCHCN 09:56
PROVIDERS: PCP Family Medicine; Visit Provider Family Medicine
DX: I10 Essential (primary) hypertension (principal)
CPT/HCPCS: 80061